=== PATIENT | female | born 1975 | race Caucasian/White ===

== ENCOUNTER 2023-10-08 22:07 | Inpatient (IN) | payer OTHER, SELFPAY ==
[2023-10-08 17:54] VITALS: BP 146/81
[2023-10-08 18:23] LABS: % Basophils 0.4 % (0-2); % Eosinophils 2.6 % (0-6); % Immature Granulocytes 0.3 % (0-0.5); % Lymphocytes 6.2 % (20.5-51.1); % Monocytes 5.7 % (1.7-9.3); % Neutrophils 84.8 % (42.2-75.2); Absolute Eosinophils 0.2 10^3/uL (0-0.7); Absolute Lymphocytes 0.5 10^3/uL (1.2-3.4); Absolute Monocytes 0.4 10^3/uL (0.1-0.6); Absolute Neutrophils 6.3 10^3/uL (1.4-6.5); Hematocrit 37.7 % (37.0-47.0); Hemoglobin 12.4 g/dL (12.0-16.0); Mean Corp Hgb Conc. 32.9 g/dL (33.0-37.0); Mean Corpuscular Volume 88.1 fL (81.0-99.0); Mean Platelet Volume 10.2 fL (7.4-10.4); Nucleated Red Blood Cells % 0 %; Platelet Count 251 10^3/uL (130-400); Red Blood Cell Count 4.28 10^6/uL (4.20-5.40); Red Cell Dist. Width 15.9 % (11.5-14.5); White Blood Cell Count 7.4 10^3/uL (4.8-10.8)
[2023-10-08 18:35] LABS: ALT (SGPT) 14 U/L (0-35); AST (SGOT) 22 U/L (14-36); Albumin 3.6 g/dl (3.5-5.0); Alkaline Phosphatase 220 U/L (38-126); Blood Urea Nitrogen 15 mg/dl (7-17); Calcium 8.8 mg/dl (8.4-10.2); Carbon Dioxide 22 mmol/L (22-30); Chloride 107 mmol/L (98-107); Glucose 118 mg/dl (70-99); Potassium 3.8 mmol/L (3.5-5.1); Sodium 137 mmol/L (135-145); Total Bilirubin 0.7 mg/dl (0.2-1.3); Total Protein 7.3 g/dl (6.3-8.2); eGFR > 60.00
--- NOTE | 2023-10-08 21:01 | ED.GENMED ---
History of Present Illness
General
Chief Complaint: Skin Problem
Source: patient
Exam Limitations: none
Time Seen by Provider: 10/08/23 20:49
Travel History
Have you had any contact with someone who has COVID-19?: No
Do you have any symptoms of coronavirus? Fever > 100 degrees, chills, cough, shortness of breath, sore throat, loss of taste or smell, muscle aches, or headache?: No
History of Present Illness
History of Present Illness:
See MDM
Past History
Past History
ED Past Medical History: CAD ([place]), CHF (Diastolic heart failure), COPD, HTN, Hypercholesterolemia, [place], Psychiatric (Depression, anxiety, Claustrophobic, ), Other (Morbid obesity, DVT, PE, cardiomyopathy, anemia, lymphedema, menometrorrhagia, Sleep
apnea, CPAP, Colitis, GI bleeding, Uterine fibroid, Green fild filter, Bronchiolitis, LBBB) and Other (Recurrent PE and DVT, fatty liver, uterine artery embolization Chronic lower extremity edema, Hemorrhiods, Iron Def anema, Cellulitis, )
ED Past Surgical History: , Gynecological (Tubal ligation, endometrial embolization, Uterine fibroids, ), Orthopedic (Laminectomy), Tonsilectomy and Other (IVC filter, right lumpectomy, )
Patient has exhibited threatening behavior?: No
PSI?: No
Social History
Tobacco: Smoker
Alcohol: Occasional
Drug: None
Personal: Single
Living: alone (Significant other)
Employment: Not employed ([employer])
Family History
Family History: Cancer (Mother with lung cancer at 51, father with lung cancer at 71 both )
Phy Exam
Physical Exam
Physical Exam:
See MDM
Course
Orders/Labs/Results
Orders:
Orders
10/08/23 18:12
CBC/With Diff [Complete Blood Count/With Diff] Urgent
CMP [Comprehensive Metabolic Panel] Urgent
10/08/23 20:58
Diphenhydramine [Benadryl] 25 mg IV NOW STA
10/08/23 20:59
CeFAZolin 2 grams IV Push NOW CeFAZolin 2 GRAM [Ancef] 2 grams in 10 ml IV NOW
Micafungin Sodium [Mycamine] 100 mg Dextrose 5%/Water 100 ml [D5w] 100 ml IV ONCE
Abnormal Lab Results
10/08/23
18:12
MCHC 32.9 L g/dL
(33.0-37.0)
RDW 15.9 H %
(11.5-14.5)
Absolute Lymphs (auto) 0.5 L 10^3/uL
(1.2-3.4)
Neutrophils % 84.8 H %
(42.2-75.2)
Lymphocytes % 6.2 L %
(20.5-51.1)
Glucose 118 H mg/dl
(70-99)
Alkaline Phosphatase 220 H U/L
(38-126)
10/08/23 18:12
10/08/23 18:12
Vital Signs
Initial and Last Documented VS:
Initial Vital Signs
Temp Pulse Resp BP Pulse Ox
98.1 F 100 22 146/81 97
10/08/23 17:54 10/08/23 17:54 10/08/23 17:54 10/08/23 17:54 10/08/23 17:54
Last Documented Vital Signs
Temp Pulse Resp BP Pulse Ox
98.1 F 100 22 146/81 97
10/08/23 17:54 10/08/23 17:54 10/08/23 17:54 10/08/23 17:54 10/08/23 17:54
MDM/Problems Addressed
Differential Diagnosis Includes:
HPI and MDM Narrative:
48-year-old female presenting to the emergency department with worsening skin irritation. Patient has been admitted in the past for severe tinea intertrigo. She has failed outpatient therapy in the past and has required admission for micafungin
and Ancef. Patient states the rash is returning and getting worse.
On exam, patient is significant skin irritation to her inguinal folds, her breast folds, her back skin folds and a significant rash to all extremities. Given her history, will restart micafungin and Ancef and admit
Physical exam
General: Well appearing and non-toxic
HEENT: protecting airway
Neck: appears supple
CV: No evidence of cyanosis
Resp: No accessory muscle use
Abd: Non-distended
Extremities: No deformities
Neuro: alert
Psych: Normal affect
Skin: Erythema and oozing to inguinal skin folds, breast folds and back fold. pustular rash to both arms
Problems Addressed including Acute and Chronic Conditions affecting care:
1. Tinea intertrigo
Acuity: acute
Prognosis: unstable
Details: patient restarted on micafungin and Ancef
Updates
Differential Diagnosis (but not limited to): Tinea, intertrigo, cellulitis
Drug therapy (if applicable): OTC meds, please see d/c instruction regarding Rx drugs
Amount and/or Complexity of Data Reviewed
Clinical info obtained from: Patient
External data reviewed: Prior admissions requiring micafungin and Ancef
Labs I independently reviewed (but not limited to): [White blood cell count normal
Radiology: N/A
Pulse Ox: not hypoxic
EKG independently reviewed: N/A
Soup Person: N/A
Critical Care: N/A
Risk of Complication:
Social Determinants of health: Good social support
Discussed with other providers: Hospitalist
Escalation of Care includes Admit/Obs: Given the worsening rash, will start IV micafungin and Ancef and admit
Occasional wrong word or 'sound a like' substitutions may have occurred due to the inherent limitations of voice recognition software. Read the chart carefully and recognize, using context, where substitutions have occurred.
*Critical Care Note
Total Time (30-74mins, 75-104mins- exclusive of procedures): Not Applicable
ED Attending Note
-
Portions of this chart may have been created with voice recognition software.� Occasional wrong word or��sound alike� substitutions may have occurred due to the inherent limitations of voice recognition software.
Discharge Plan
Departure
Patient Disposition: Admit
Date of Disposition: 10/08/23
Time of Disposition: 21:01
Admit to: Med/Surg
Presentation/result/management discussed w/ accepting MD/DO: Hospitalist
Discharge Problem:
Intertrigo
Prescriptions:
No Action
loratadine 10 MG tablet
10 mg PO DAILY
ferrous sulfate [FeroSul] 325 MG tablet
325 mg PO Q48H
fluoxetine 20 MG capsule
20 mg PO DAILY
albuterol sulfate 1 PUFF HFA aerosol inhaler
2 puff inhalation R Q4HPRN PRN (Reason: sob/wheezing)
diltiazem HCl 180 MG capsule,extended release 24hr
180 mg PO DAILY Qty: 30 0RF
atorvastatin 40 mg tablet
40 mg PO DAILY
guaifenesin [Mucinex] 600 mg Tablet Extended Release 12hr
600 mg PO Q12H PRN (Reason: chest congestion)
pantoprazole 20 mg tablet,delayed release (DR/EC)
20 mg PO DAILY PRN (Reason: gi issues)
torsemide 20 mg Tablet
20 mg PO DAILY PRN (Reason: weight gain)
spironolactone 25 mg Tablet
25 mg PO DAILY
Critic-Aid Clear AF(miconazol) 2 % Ointment
1 applic topical BIDPRN PRN (Reason: open areas in affected skin folds) Qty: 684 0RF
bupropion HCl 300 mg Tablet Extended Release 24 Hr
300 mg PO DAILY
melatonin 5 mg Tablet
5 - 10 mg PO HS
clotrimazole [Athlete's Foot (clotrimazole)] 1 % Cream
1 applic topical BID Qty: 45 2RF
Rx Instructions:
apply to skin folds/fungal rash BID x 2 weeks
white petrolatum [Hydrophor] 42 % Ointment
1 applic topical DAILY Qty: 454 0RF
Rx Instructions:
to dry legs
cephalexin 500 mg capsule
500 mg PO QID Qty: 20 0RF
--- NOTE | 2023-10-08 21:10 | HPS.HSE ---
Addendum entered and electronically signed by Qasim Perera MD 10/08/23 22:00:
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
anxiety/depression, anemia, sleep apnea, fatty liver, chronic anemia presenting for third admission for rash.
Patient recently discharged on 09/02 after being admitted for severe intertrigo with suspected superimposed bacterial cellulitis.� She was treated with micafungin and Ancef and discharged to Keflex and clotrimazole as per ID.� She also had a
generalized body rash that was attributed to fluconazole.
Patient reports that symptoms worsened after she finished treatment and insurance would not approve further prolonged treatment.
On examination she has a erythematous draining rash which is consistent with fungal intertrigo in the creases including groin, abdominal folds and under the breasts.� She has also developed itchiness and erythema more acutely in her bilateral hands
over the past 2 days which has progressed up the extremities as well as involving the chest and lower extremities which appears as a pustular rash.� Suspecting that this could be due to contact dermatitis/pustular eczema/psoriasis.
Will start Ancef/micafungin as was done previously.� ID consulted.� May require dermatology consult.�
Original Note:
Family Physician
-
Family Physician: Maegan Sanchez DO
Chief Complaint
-
generalized rash
History of Present Illness
48 year old with PMH for CAD, CHF, [place], Depression, anxiety, DVT, PE, anemia, lymphedema, sleep apnea, GI bleed presented to us with generalized rash all over body for past few days. stated the pustule rash started on her hand spreaded to b/l arms
and body. patient had fungal rash underneath her breast, abdominal pain folds and groin area which also got worse. patient was discharged on oral abx and antifungal. she stated, was doing much better on abx but rash comes back, when she is not on
abx. patient stated its painful and itchy. her PCP prescribed abx and cream. which also helped but rash appeared within days off abx. the cream only last her two week and insurance won't fill her cream every two weeks. denied fever, chills, WATERS,
dizzy or syncopal episode. denied chest pain, sob. denied abdominal pain, n, ,v,d. denied dysuria or hematuria.
patient received a dose of Ancef and micafungin. admitting for further management.
Medical History
Past Medical History
Past Medical History: Reports Other
Additional Past Medical History:
hypertension, coronary artery disease, diastolic heart failure, bilateral pulmonary embolisms, prior DVT status post IVC filter, COPD, obesity, hypercholesterolemia, anxiety/depression, anemia, sleep apnea, fatty liver, chronic edema, hemorrhoids,
Past Surgical History: Reports Other
Additional Past Surgical History:
, Tubal ligation, endometrial embolization, Uterine fibroids,Laminectomy,Tonsillectomy VC filter, right lumpectomy
Social History
Tobacco: Smoker
Alcohol: Occasional
Drug: None
Family History
Family History: Not pertinent
Allergies / Home Medications
Allergies reflects when Allergies were last updated in [facility].
Home Medications with original date entered in [facility]
Allergy/Medication List:
Allergies
Allergy/AdvReac Type Severity Reaction Status Date / Time
amoxicillin Allergy Rash on Verified 10/08/23 17:58
hands
naproxen Allergy heart Verified 10/08/23 17:58
palpitaitons
pollen extracts Allergy SOB;congest Verified 10/08/23 17:58
ion
Home Medications
ferrous sulfate 325 mg (65 mg iron) tablet (FeroSul) 325 mg PO Q48H Supplement/anemia 02/10/15
loratadine 10 mg tablet 10 mg PO DAILY Allergies 02/10/15
albuterol sulfate 90 mcg/actuation aerosol inhaler 2 puff inhalation R Q4HPRN PRN sob/wheezing 10/01/17
diltiazem HCl 180 mg capsule,extended release 24 hr 180 mg PO DAILY Heart disease/condition #30 caps 09/28/20
guaifenesin 600 mg tablet, extended release 12 hr (Mucinex) 600 mg PO Q12H PRN chest congestion 11/06/22
pantoprazole 20 mg tablet,delayed release 20 mg PO DAILY PRN gi issues 08/06/23
spironolactone 25 mg tablet 25 mg PO DAILY 08/07/23
melatonin 5 mg tablet 5 - 10 mg PO HS 08/30/23
acetaminophen 325 mg tablet (Tylenol) 650 mg PO Q4H PRN MILD PAIN 10/08/23
bupropion HCl 150 mg tablet,12 hr sustained-release (Wellbutrin SR) 300 mg PO DAILY 10/08/23
rosuvastatin 20 mg tablet (Crestor) 20 mg PO DAILY 10/08/23
Review of Systems
-
Constitutional: Reports No Symptoms
EENT: Reports No Symptoms
Respiratory: Reports No Symptoms
Cardiac: Reports No Symptoms
Abdomen/GI: Reports No Symptoms
: Reports No Symptoms
Musculoskeletal: Reports No Symptoms
Skin: Reports Rash (generalized body)
Neurological: Reports No Symptoms
Endocrine: Reports No Symptoms
Hematologic/Lymphatic: Reports No Symptoms
Psych: Reports No Symptoms
Physical Exam
Vital Signs
Vital Signs
Temp Pulse Resp BP Pulse Ox
98.1 F 100 22 146/81 97
10/08/23 17:54 10/08/23 17:54 10/08/23 17:54 10/08/23 17:54 10/08/23 17:54
Physical Exam
General: Well Developed, Well Nourished and No Apparent Distress
HEENT: NormoCephalic, Moist mucous membranes and Atraumatic
Respiratory: Clear
Cardiac: S1/S2 and Regular Rhythm; No Murmur or Rub
GI: Soft, Non Tender, Non Distended and Normal Bowel Sounds; No Organomegaly
Rectal: Deferred by Provider
Musculoskeletal: No Clubbing, No Cyanosis and No Edema
Skin: Rash
Neuro: AO x 3 and Nonfocal/grossly intact
Psych: Calm
Laboratory Results
-
10/08/23 18:12
10/08/23 18:12
Laboratory Results
Total Bilirubin 0.7 mg/dl (0.2-1.3) 10/08/23 18:12
AST 22 U/L (14-36) 10/08/23 18:12
ALT 14 U/L (0-35) 10/08/23 18:12
Alkaline Phosphatase 220 U/L (38-126) H 10/08/23 18:12
Data Reviewed
-
Lab Data: Labs Reviewed by me
Impression/Plan
-
#severe tinea intertrigo
-micafungin and Ancef continued
-ID consulted
#rash likely contact dermatitis/pustule psoriasis
-may need dermatology consult
#Chronic HFpEF
Essential HTN
- continue Cardizem
-spironolactone continued
#hx of PE/DVT s/p IVF filter
#COPD, chronic
- continue inhalers
#Morbid Obesity, chronic, complicating all aspects of her care
- encourage weight loss
#Hypercholesterolemia, chronic
- continue statin
#Anxiety/depression
- continue bupropion
#Anemia, chronic, likely from chronic disease
- continue iron supplement
#History of fatty liver, chronic
#GERD, chronic
- continue Protonix
#Active smoker
- smokes 6-8 cigarettes a day
- encourage smoking cessation
- denied nicotine patch at this time
#DVT ppx: SC Heparin
#Code: Full
[2023-10-08] MEDS: BENADRYL 25 MG IV (21:31)
[2023-10-08 21:35] VITALS: BP 136/66
[2023-10-08] MEDS: MYCAMINE 105 MG IV (22:23)
[2023-10-08] MEDS: ANCEF 10 IV (22:23)
[2023-10-08] MEDS: MELATONIN 10 MG PO (23:52)
[2023-10-09] VITALS (8 sets, daily range): BP systolic 124–146; BP diastolic 54–72
[2023-10-09] MEDS: DILAUDID 0.25 MG IV ×2 (00:51→10:10)
[2023-10-09] MEDS: BENADRYL 25 MG PO (00:52)
[2023-10-09] MEDS: ANCEF 10 IV (05:41)
[2023-10-09 06:58] LABS: Hemoglobin 11.3 g/dL (12.0-16.0); Mean Corp Hgb Conc. 32.3 g/dL (33.0-37.0); Mean Corpuscular Hgb 28.9 pg (27.0-31.0); Mean Corpuscular Volume 89.5 fL (81.0-99.0); Mean Platelet Volume 10.4 fL (7.4-10.4); Platelet Count 248 10^3/uL (130-400); Red Blood Cell Count 3.91 10^6/uL (4.20-5.40); Red Cell Dist. Width 15.7 % (11.5-14.5); White Blood Cell Count 5.3 10^3/uL (4.8-10.8)
[2023-10-09 07:25] LABS: Blood Urea Nitrogen 13 mg/dl (7-17); Calcium 8.7 mg/dl (8.4-10.2); Carbon Dioxide 23 mmol/L (22-30); Chloride 102 mmol/L (98-107); Glucose 85 mg/dl (70-99); Sodium 135 mmol/L (135-145); eGFR > 60.00
--- NOTE | 2023-10-09 08:45 | CON.ID ---
Consultation
-
Date/Time Consultation Requested: 10/08/2023 22:40
Date/Time Consultation Performed: 10/09/2023 08:45
Requesting Provider: Mar Morrissey
Performing Provider: Dr. Viveros
Reason for Consultation: Recurrent Intertrigio
Chief Complaint / Past History
History of Present Illness
Adin Escobar is a 48-year-old female being evaluated at the request of Mar Morrissey in regards to body rash and intertrigo. History is obtained from chart review, along with patient interview.
The patient is known to the Infectious Diseases service, having been seen in consultation on 08/31/2023. At that point in time she had developed an inguinal rash on approximately 08/06, and in the interim she had been using 'creams and powders' to the
area but were not helping. At that time she was placed on Diflucan, but despite antifungal therapy the inguinal rash was not improving. Ultimately, she was admitted, placed on micafungin and cefazolin, and discharged on 09/02/2023, to continue with
an additional 5 days of therapy. She notes that she finished her antibiotics on 09/07/2023, but after several days she felt that the inguinal rash was getting worse and she called her PCP, who prescribed an additional 10 days of cephalexin. She
finished this prescription on about 09/21/2023. She seemed to be improved following that, but notes that 3 days ago she developed a red and itchy rash on her hands, with subsequent development of red bumps on her arms and other extremities. She
also notes that the groin issue seems to have returned.
.
She denies any fevers or chills. She notes discomfort in her hands, and her groin. She notes no oral discomfort, though.
Past History
Additional Past Medical History:
CAD; Hx [place]
CHF
COPD
HTN
Dyslipidemia
Anxiety/depression
DVT/PE
Morbid obesity
Lymphedema
ILEANA
Additional Past Surgical History:
Tubal ablation
Endometrial embolization for uterine fibroids laminectomy
IVC filter placement
Right lumpectomy
Allergy History:
amoxicillin Allergy (Verified 10/08/23 17:58)
Rash on hands
naproxen Allergy (Verified 10/08/23 17:58)
heart palpitaitons
pollen extracts Allergy (Verified 10/08/23 17:58)
SOB;congestion
Medications Reviewed: Yes
Current Antibiotics:
Cefazolin
Micafungin
Social History
Tobacco: Smoker
Alcohol: Occasional
Drug: None
Personal: Single
Family History
Family History: Not Pertinent
Review of Systems
Vital Signs
Temp Pulse Resp BP Pulse Ox
97.5 F 66 20 124/66 94
10/09/23 07:00 10/09/23 07:00 10/09/23 07:00 10/09/23 05:42 10/09/23 07:00
Physical Exam
Physical Exam
Constitutional: No Acute Distress, Comfortable and Non-toxic
Head: Normocephalic
Eyes: Pupils Equal, Pupils Round, No Conjunctival Hemorrhage and Sclera Anicteric
Oral: No Thrush
Cardiovascular: S1/S2; Negative S3/S4 or Murmur
Pulmonary: Non Labored; Negative Wheezes or Rales
Gastrointestinal: Soft and Non Tender
Genito-Urinary: Negative Rain
Extremities: Edema and Erythema (Noted on bilateral hands)
Skin: Rash (Macular papular rash with occasional small pustules noted on the extremities bilaterally. Inguinal rash also noted. No overt weeping, though.)
Neurological: Awake and Alert
Psychological: Calm
.
Lab / Diagnostic Study Results
10/09/23 06:09
10/09/23 06:09
Abs Immat Gran (auto) 0.0 10^3/uL (0-0.05) 03/06/24 18:12
Absolute Neuts (auto) 6.3 10^3/uL (1.4-6.5) 10/08/23 18:12
Absolute Lymphs (auto) 0.5 10^3/uL (1.2-3.4) L 10/08/23 18:12
Absolute Monos (auto) 0.4 10^3/uL (0.1-0.6) 10/08/23 18:12
Absolute Basos (auto) 0.0 10^3/uL (0-0.2) 10/08/23 18:12
Immature Gran % 0.3 % (0-0.5) 10/08/23 18:12
Neutrophils % 84.8 % (42.2-75.2) H 10/08/23 18:12
Lymphocytes % 6.2 % (20.5-51.1) L 10/08/23 18:12
Monocytes % 5.7 % (1.7-9.3) 10/08/23 18:12
Eosinophils % 2.6 % (0-6) 10/08/23 18:12
Basophils % 0.4 % (0-2) 10/08/23 18:12
Assessment / Plan
Skin rash
Suspect drug reaction; ?late reaction to keflex vs other medication
Intertrigo
CAD; Hx [place]
CHF
COPD
HTN
Dyslipidemia
Anxiety/depression
DVT/PE
Morbid obesity
Lymphedema
ILEANA
Recommendations:
Case discussed with Hospitalist.
Not clear as to whether this is a drug reaction or contact dermatitis, but little evidence at present for cellulitis.
No objection to discontinuing further antibiotics (cefazolin)
Would discontinue further antifungals as it will not likely help the cutaneous Belen infection at this point as there is very little weeping.
Can continue with topical clotrimazole. Topical terbinafine.
Would recommend follow-up with Dermatology for close monitoring.
Care Review
Plan reviewed with: Physician (Hospitalist)
[2023-10-09] MEDS: ALDACTONE 25 MG PO (10:04)
[2023-10-09] MEDS: CLARITIN 10 MG PO (10:04)
[2023-10-09] MEDS: CRESTOR 20 MG PO (10:04)
[2023-10-09] MEDS: CARDIZEM CD 180 MG PO (10:04)
[2023-10-09] MEDS: WELLBUTRIN XL (24 hour extended release) 300 MG PO (10:05)
--- NOTE | 2023-10-09 11:17 | W.DS.TRANS ---
DC Summary - Stage Rigger
-
Discharge Instructions:
Discharge Diagnosis/Procedures Drug reaction
Diet 2 Gram Sodium
Instructions:
Stand-Alone Forms:
Changes to Home Medications: Yes
Discharge Medications:
DC Medications w/original date entered in [employer]
ferrous sulfate 325 mg (65 mg iron) tablet (FeroSul) 325 mg PO Q48H Supplement/anemia 02/10/15
loratadine 10 mg tablet 10 mg PO DAILY Allergies 02/10/15
albuterol sulfate 90 mcg/actuation aerosol inhaler 2 puff inhalation R Q4HPRN PRN sob/wheezing 10/01/17
diltiazem HCl 180 mg capsule,extended release 24 hr 180 mg PO DAILY Heart disease/condition #30 caps 09/28/20
guaifenesin 600 mg tablet, extended release 12 hr (Mucinex) 600 mg PO Q12H PRN chest congestion 11/06/22
pantoprazole 20 mg tablet,delayed release 20 mg PO DAILY PRN gi issues 08/06/23
spironolactone 25 mg tablet 25 mg PO DAILY 08/07/23
melatonin 5 mg tablet 10 mg PO HS 08/30/23
acetaminophen 325 mg tablet (Tylenol) 650 mg PO Q4H PRN MILD PAIN 10/08/23
bupropion HCl 150 mg tablet,12 hr sustained-release (Wellbutrin SR) 300 mg PO DAILY 10/08/23
rosuvastatin 20 mg tablet (Crestor) 20 mg PO DAILY 10/08/23
cetirizine 10 mg tablet 10 mg PO DAILY #30 tabs 10/09/23
prednisone 10 mg tablet 10 mg PO DIRECTED #42 tabs 10/09/23
triamcinolone acetonide 0.1 % topical cream 1 applic topical TID #80 grams 10/09/23
Home Medication Changes
prednisone taper
Zyrtec
Topical steroid
Pending Results: No
--- NOTE | 2023-10-09 12:04 | W.DS.TRANS ---
DC Summary - Cherry Dipper
-
Discharge Instructions:
Discharge Diagnosis/Procedures Drug reaction
Diet 2 Gram Sodium
Instructions:
Stand-Alone Forms:
Changes to Home Medications: Yes
Discharge Medications:
DC Medications w/original date entered in [facility]
ferrous sulfate 325 mg (65 mg iron) tablet (FeroSul) 325 mg PO Q48H Supplement/anemia 02/10/15
albuterol sulfate 90 mcg/actuation aerosol inhaler 2 puff inhalation R Q4HPRN PRN sob/wheezing 10/01/17
diltiazem HCl 180 mg capsule,extended release 24 hr 180 mg PO DAILY Heart disease/condition #30 caps 09/28/20
guaifenesin 600 mg tablet, extended release 12 hr (Mucinex) 600 mg PO Q12H PRN chest congestion 11/06/22
pantoprazole 20 mg tablet,delayed release 20 mg PO DAILY PRN gi issues 08/06/23
spironolactone 25 mg tablet 25 mg PO DAILY 08/07/23
melatonin 5 mg tablet 10 mg PO HS 08/30/23
acetaminophen 325 mg tablet (Tylenol) 650 mg PO Q4H PRN MILD PAIN 10/08/23
bupropion HCl 150 mg tablet,12 hr sustained-release (Wellbutrin SR) 300 mg PO DAILY 10/08/23
rosuvastatin 20 mg tablet (Crestor) 20 mg PO DAILY 10/08/23
cetirizine 10 mg tablet 10 mg PO DAILY #30 tabs 10/09/23
prednisone 10 mg tablet 10 mg PO DIRECTED #42 tabs 10/09/23
triamcinolone acetonide 0.1 % topical cream 1 applic topical TID #80 grams 10/09/23
Home Medication Changes
Oral and topical steroid added
Pending Results: No
[2023-10-09] MEDS: DELTASONE 60 MG PO (14:49)
== END 2023-10-09 15:25 | disposition home or self-care (01) | DRG 607 ==
LOC: ED 22:07
PROVIDERS: Emergency Medicine; Registered Nurse; ADMITTING PHYSICIAN Hospitalist; ATTENDING PHYSICIAN Internal Medicine; CONSULT PHYSICIAN Internal Medicine Infectious Disease; EMERGENCY PHYSICIAN Student in an Organized Health Care Education/Training Program; FAMILY PHYSICIAN Family Medicine
DX: L27.1 Localized skin eruption due to drugs and medicaments taken internally (principal); Z68.43 Body mass index [BMI] 50.0-59.9, adult; I50.32 Chronic diastolic (congestive) heart failure; L30.4 Erythema intertrigo; E66.01 Morbid (severe) obesity due to excess calories; K76.0 Fatty (change of) liver, not elsewhere classified; K21.9 Gastro-esophageal reflux disease without esophagitis; F17.210 Nicotine dependence, cigarettes, uncomplicated; I11.0 Hypertensive heart disease with heart failure; T36.1X5A Adverse effect of cephalosporins and other beta-lactam antibiotics, initial encounter; Z86.711 Personal history of pulmonary embolism
CPT/HCPCS: 80048; 80053; 85025; 85027; 96361; 96374; 96375; 99284

== ENCOUNTER 2024-11-26 12:43 | Emergency (ER) | payer OTHER, SELFPAY ==
[2024-11-26 12:45] VITALS: BP 134/69
--- NOTE | 2024-11-26 14:06 | ED.GENMED ---
History of Present Illness
General
Chief Complaint: Skin Problem
Source: patient
Exam Limitations: none
Time Seen by Provider: 11/26/24 13:49
Nursing documentation reviewed up to this point in time: agreed with
History of Present Illness
History of Present Illness:
49 y/o F with h/o alcohol abuse, cardiomyopathy/chf, CT, not anticoagulated
here with L breast pain/redness x 3 days
pt says she had lumpectomy R breast which was benign in 2011 and she never had closure of the skin so the area always drains
about 3-4days ago she started having firmness, swellling, tenderness, redness and no drainage;
she has not ahd systemic symptoms
andree tto [facility] yesterday where she had labs, and was ordered US but waited 5 hours and left before obtaining
she got Rx for bactrim which she didn't start yet
pain is moderate
Past History
Past History
ED Past Medical History: CAD (CT), CHF (Diastolic heart failure), COPD, HTN, Hypercholesterolemia, CT, Psychiatric (Depression, anxiety, Claustrophobic, ), Other (Morbid obesity, DVT, PE, cardiomyopathy, anemia, lymphedema, menometrorrhagia, Sleep
apnea, CPAP, Colitis, GI bleeding, Uterine fibroid, Green fild filter, Bronchiolitis, LBBB) and Other (Recurrent PE and DVT, fatty liver, uterine artery embolization Chronic lower extremity edema, Hemorrhiods, Iron Def anema, Cellulitis, )
ED Past Surgical History: , Gynecological (Tubal ligation, endometrial embolization, Uterine fibroids, ), Orthopedic (Laminectomy), Tonsilectomy and Other (IVC filter, right lumpectomy, )
Patient has exhibited threatening behavior?: No
PSI?: No
Social History
Tobacco: Smoker
Alcohol: Occasional
Drug: None
Personal: Single
Living: alone (Significant other)
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
Family History
Family History: Cancer (Mother with lung cancer at 51, father with lung cancer at 71 both )
Review of Systems
Review of Systems
Allergies reviewed?: Yes
All Other Systems: Not applicable
Phy Exam
Physical Exam
Physical Exam:
GENERAL: Alert , in no apparent distress
EYE: pupils equal and reactive
NECK: Supple
ENT: o/p clr, mmm.
CARDIAC: Regular rate and rhythm .
breast: left involving medial areaola to nipple, tender firm indurated area measuring about 3 cm no fluctuance, no drainage, mild erythema overtop
LUNGS: Clear breath sounds bilaterally, no acute respiratory distress, no wheezes/rales/rhonchi
ABDOMEN: Soft, without focal tenderness, no r/g, no cvat, normal bowel sounds
NEUROLOGICAL: Alert and oriented, no focal neuro deficits
skin: multiple erythematous dry patches, ? psoriasis
PSYCH: Normal and appropriate interaction.
Course
Orders/Labs/Results
Orders:
Orders
11/26/24 14:37
US Breast Left Ltd [facility] Urgent
Reason for Exam: left breast abscess
11/26/24 15:22
Complete Blood Count/With Diff Urgent
Comprehensive Metabolic Panel Urgent
Manual Differential Urgent
11/26/24 15:38
Oxycodone/Acetaminophen [Percocet 5/325] 1 tablet PO NOW STA
11/26/24 15:41
Consult Interventional Radiology [IRAD CONSULT] Urgent
Consulting Provider: Augusto Emery
Was physician already notified: Yes
Reason for Consult/Procedure: breast abscess
Acknowledgement that appropriate orders are entered: Yes
11/26/24 15:43
Ondansetron Orally Disint [Zofran Odt (Orally Disintegrating)] 4 mg PO NOW STA
11/26/24 16:57
Wound Culture [Wound/Abscess/Other Culture] Urgent
LIZBETH Source: Breast
Specimen Description: Left
Date Specimen was Collected: 11/26/24
Time Specimen was Collected: 16:34
Abnormal Lab Results
11/26/24
15:22
RDW 14.8 H %
(11.5-14.5)
Monocytes (Manual) 12 H %
(2-9)
Chloride 110 H mmol/L
(98-107)
Glucose 102 H mg/dl
(70-99)
11/26/24 15:22
11/26/24 15:22
Vital Signs
Initial and Last Documented VS:
Initial Vital Signs
Temp Pulse Resp BP Pulse Ox
36.9 C 89 18 134/69 95
11/26/24 12:45 11/26/24 12:45 11/26/24 12:45 11/26/24 12:45 11/26/24 12:45
Last Documented Vital Signs
Temp Pulse Resp BP Pulse Ox
36.7 C 85 16 126/61 99
11/26/24 16:05 11/26/24 16:38 11/26/24 16:38 11/26/24 16:38 11/26/24 16:38
MDM/Problems Addressed
Differential Diagnosis Includes:
breast abscess, infected cyst, malignancy
MDM/Problems Addressed:
49 y/o F with h/o breast lumpectomy but in the R breast in 2011 here
says she also had same from L breast, but i do not see that documentation
says she chronically drains from her L breast if she expresses from a small area
but that it stopped draining a few days ago now with swelling, induration, redness;
no fever
has a tender indurated abscess involving aerola
d/w [facility] ttending and breast surgeon dr. mckenna
recommended US and if + then IR drainage
pt has what looks like marcio cyst in the breast with overlying erythema on the US
d/w ir dr. winchester who was able to drain it
left open, not packed
warm compresses
pt has abx from [place] yesterday
f/u breast surgeyr
*Critical Care Note
Total Time (30-74mins, 75-104mins- exclusive of procedures): Not Applicable
ED Attending Note
-
Portions of this chart may have been created with voice recognition software.� Occasional wrong word or��sound alike� substitutions may have occurred due to the inherent limitations of voice recognition software.
Discharge Plan
Departure
Patient Disposition: Home (Routine Discharge)
Date of Disposition: 11/26/24
Time of Disposition: 17:15
Patient with high blood pressure during this ER visit?: No
Condition: Fair
Covid-19: Not Applicable
Discharge Problem:
Infected sebaceous cyst
Instructions: Skin abscess drainage - Discharge instructions
Prescriptions:
No Action
ferrous sulfate [FeroSul] 325 MG tablet
325 mg PO Q48H
albuterol sulfate 1 PUFF HFA aerosol inhaler
2 puff inhalation R Q4HPRN PRN (Reason: sob/wheezing)
diltiazem HCl 180 MG capsule,extended release 24hr
180 mg PO DAILY Qty: 30 0RF
Patient Comments:
10/08/23- NO PHARMACY RECORD OR ECW RECORD OF THIS DRUG
guaifenesin [Mucinex] 600 mg Tablet Extended Release 12hr
600 mg PO Q12H PRN (Reason: chest congestion)
pantoprazole 20 mg tablet,delayed release (DR/EC)
20 mg PO DAILY PRN (Reason: gi issues)
spironolactone 25 mg Tablet
25 mg PO DAILY
Patient Comments:
10/08/23- NO PHARMACY RECORD OR ECW RECORD OF THIS DRUG
melatonin 5 mg Tablet
10 mg PO HS
bupropion HCl [Wellbutrin SR] 150 mg Tablet Sustained-Release 12 Hr
300 mg PO DAILY
acetaminophen [Tylenol] 325 mg Tablet
650 mg PO Q4H PRN (Reason: MILD PAIN)
rosuvastatin [Crestor] 20 mg Tablet
20 mg PO DAILY
cetirizine 10 mg Tablet
10 mg PO DAILY Qty: 30 0RF
prednisone 10 mg tablet
10 mg PO DIRECTED Qty: 42 0RF
Rx Instructions:
60mg for 2 days
50mg for 2 days
40mg for 2 days
30mg for 2 days
20mg for 2 days
10mg for 2 days
triamcinolone acetonide 0.1 % cream
1 applic topical TID Qty: 80 2RF
Referrals:
Loreto Mckenna MD [Active] - Follow up in 2-3 days
Maegan Sanchez DO [Family Provider] - Follow up in 2-3 days
Activity Restrictions/Additional Instructions:
YOU NEED TO TAKE YOUR ANTIBIOTICS
WARM COMPRESSES OFF AND ON
CALL DR. MCKENNA'S OFFICE FOR APPOINTMENT ON FRIDAY
RETURN FOR ANY CONCERNS LIKE FEVER, WORSE REDNESS, WORSE SWELLING, WORSE PAIN OR ANY CONCERNS
Interventions
Interventions:
*Risk Screen - Suicide Last Done: 11/26/24 12:45
*General Assessment Last Done: 11/26/24 12:45
*Neglect/Abuse Screening Last Done: 11/26/24 12:45
*ED COVID-19 Vaccine History Last Done: 11/26/24 12:45
*Nursing Disposition Last Done: 11/26/24 17:49
ED-Skin Assessment Last Done: 11/26/24 15:38
Discharge Date and Time
Discharge Date/Time: 11/26/24 17:50
Print Language: ESTONIAN
[2024-11-26] MEDS: PERCOCET 5/325 1 TABLET PO (15:42)
[2024-11-26] MEDS: ZOFRAN ODT (ORALLY DISINTEGRATING) 4 MG PO (15:46)
[2024-11-26 15:51] LABS: Hematocrit 43.3 % (37.0-47.0); Hemoglobin 14.5 g/dL (12.0-16.0); Mean Corp Hgb Conc. 33.5 g/dL (33.0-37.0); Mean Corpuscular Hgb 30.3 pg (27.0-31.0); Mean Corpuscular Volume 90.4 fL (81.0-99.0); Mean Platelet Volume 10.4 fL (7.4-10.4); Platelet Count 233 10^3/uL (130-400); Red Blood Cell Count 4.79 10^6/uL (4.20-5.40); Red Cell Dist. Width 14.8 % (11.5-14.5); White Blood Cell Count 5.2 10^3/uL (4.8-10.8)
[2024-11-26 15:59] LABS: ALT (SGPT) 15 U/L (0-35); AST (SGOT) 25 U/L (14-36); Albumin 3.6 g/dl (3.5-5.0); Alkaline Phosphatase 112 U/L (38-126); Blood Urea Nitrogen 16 mg/dl (7-17); Carbon Dioxide 24 mmol/L (22-30); Chloride 110 mmol/L (98-107); Glucose 102 mg/dl (70-99); Potassium 4.4 mmol/L (3.5-5.1); Sodium 143 mmol/L (135-145); Total Bilirubin 0.6 mg/dl (0.2-1.3); Total Protein 7.1 g/dl (6.3-8.2); eGFR > 60.00
[2024-11-26 16:05] VITALS: BP 143/78; BP_SYST 75
[2024-11-26 16:17] LABS: Absolute Neutrophils -Man Diff 2.7 10^3/uL (1.4-6.5); Atypical Lymphocytes 2 %; Band Neutrophils 0 % (0-3); Eosinophils 6 % (0-6); Lymphocytes 27 % (20-51); Monocytes 12 % (2-9); Platelets Checked Yes; Segmented Neutrophils 53 % (42-75)
[2024-11-26 16:20] LABS: Normal RBC Morphology Yes; Total Cells Counted 100
[2024-11-26 16:38] VITALS: BP 126/61; BP_SYST 85
== END 2024-11-26 17:50 | disposition home or self-care (01) ==
LOC: EMR 12:43
PROVIDERS: Physician Assistant; CONSULT PHYSICIAN Radiology Vascular & Interventional Radiology; EMERGENCY PHYSICIAN Student in an Organized Health Care Education/Training Program; FAMILY PHYSICIAN Family Medicine
DX: L08.9 Local infection of the skin and subcutaneous tissue, unspecified (principal); L72.3 Sebaceous cyst; N61.1 Abscess of the breast and nipple; F10.10 Alcohol abuse, uncomplicated; I42.9 Cardiomyopathy, unspecified; I25.2 Old myocardial infarction; I11.0 Hypertensive heart disease with heart failure; I50.32 Chronic diastolic (congestive) heart failure; E66.01 Morbid (severe) obesity due to excess calories; E78.00 Pure hypercholesterolemia, unspecified; F41.8 Other specified anxiety disorders; G47.30 Sleep apnea, unspecified; I25.10 Atherosclerotic heart disease of native coronary artery without angina pectoris; J44.9 Chronic obstructive pulmonary disease, unspecified; F17.200 Nicotine dependence, unspecified, uncomplicated; Z80.1 Family history of malignant neoplasm of trachea, bronchus and lung; Z86.718 Personal history of other venous thrombosis and embolism; Z98.51 Tubal ligation status
CPT/HCPCS: 99284; 10160; 76642; 76942; 80053; 85025; 87070; 87205

== ENCOUNTER → 2024-12-06 15:32 | Outpatient (REF) | payer OTHER, SELFPAY | LOC: RCS 15:32 | PROVIDERS: ATTENDING PHYSICIAN Nuclear Medicine Nuclear Cardiology; FAMILY PHYSICIAN Family Medicine | DX: I50.32 Chronic diastolic (congestive) heart failure (principal); I44.7 Left bundle-branch block, unspecified; I27.20 Pulmonary hypertension, unspecified | CPT/HCPCS: 93306 ==

== ENCOUNTER 2024-12-11 17:58 | Inpatient (IN) | payer OTHER, SELFPAY ==
[2024-12-11 11:50] VITALS: BP 154/82
--- NOTE | 2024-12-11 12:54 | ED.GENMED ---
History of Present Illness
<JEFF Moore - Last Filed: 12/11/24 15:35>
General
Chief Complaint: Skin Problem
Source: patient
Exam Limitations: none
Time Seen by Provider: 12/11/24 12:20
Nursing documentation reviewed up to this point in time: agreed with
History of Present Illness
History of Present Illness:
49-year-old female with past medical history of alcohol abuse cardiomyopathy, CHF [place] IVC filter presents to the ER for evaluation of left breast abscess. Patient was seen here 11/26 for left breast abscess and had this drained by interventional
radiology. She reports about 4 days after she had a drained she feels that the infection started to build up again. She saw her family doctor on 2 days ago and was placed on doxycycline. She reports she has increasing redness pain and
swelling to the area. She denies any fevers.
She has an appointment with Dr. Mckenna on Friday
Past History
<JEFF Moore - Last Filed: 12/11/24 15:35>
Past History
ED Past Medical History: CAD ([place]), CHF (Diastolic heart failure), COPD, HTN, Hypercholesterolemia, [place], Psychiatric (Depression, anxiety, Claustrophobic, ), Other (Morbid obesity, DVT, PE, cardiomyopathy, anemia, lymphedema, menometrorrhagia, Sleep
apnea, CPAP, Colitis, GI bleeding, Uterine fibroid, Green fild filter, Bronchiolitis, LBBB) and Other (Recurrent PE and DVT, fatty liver, uterine artery embolization Chronic lower extremity edema, Hemorrhiods, Iron Def anema, Cellulitis, )
ED Past Surgical History: , Gynecological (Tubal ligation, endometrial embolization, Uterine fibroids, ), Orthopedic (Laminectomy), Tonsilectomy and Other (IVC filter, right lumpectomy, )
Patient has exhibited threatening behavior?: No
PSI?: No
Social History
Tobacco: Smoker
Alcohol: Occasional
Drug: None
Personal: Single
Living: alone (Significant other)
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
Family History
Family History: Cancer (Mother with lung cancer at 51, father with lung cancer at 71 both )
Phy Exam
<JEFF Moore - Last Filed: 12/11/24 15:35>
General Physical Exam
General Presentation: no apparent distress
General age: appears stated age
General Skin: warm and dry
General Habitus: normal
General Mental: alert
Neurological Exam
Neurological Exam: alert and oriented x3
Musculoskeletal Exam
Musculoskeletal Exam: full ROM
Skin Exam
Skin Exam: normal color, warm/dry and other (Left breast with scattered erythema to the lower aspect of the breast appox 6 o clock extending to 9 o clock region + indurated and tender on exam )
Course
<JEFF Moore - Last Filed: 12/11/24 15:35>
Orders/Labs/Results
Orders:
Orders
12/11/24 13:08
US Breast Left Ltd Urgent
Comment:
Reason For Exam: swelling redness hx of abscess
12/11/24 13:09
IV Insert/Care/Rem.- Treatment PRN
12/11/24 13:25
Complete Blood Count/With Diff Urgent
Comprehensive Metabolic Panel Urgent
12/11/24 14:54
Acetaminophen 1000MG/100Ml [Ofirmev] 1,000 mg in 100 ml IV ONCE
Acetaminophen IV Indication:: ED Narcotic Naive Pt-ONCE
12/11/24 15:26
IRAD CONSULT Urgent
Consulting Provider: Tim Shea
Was physician already notified: Yes
Procedure being ordered, including laterality if applicable: I@D left breast
Acknowledgement that appropriate orders are entered: Yes
12/11/24 16:11
Vancomycin [Vancocin] 2,000 mg 0.9% Sodium Chloride 500 ml [Nss] 500 ml IV NOW
Abnormal Lab Results
12/11/24
13:25
RDW 14.9 H %
(11.5-14.5)
Absolute Lymphs (auto) 0.9 L 10^3/uL
(1.2-3.4)
Neutrophils % 75.7 H %
(42.2-75.2)
Lymphocytes % 12.6 L %
(20.5-51.1)
BUN 19 H mg/dl
(7-17)
Alkaline Phosphatase 160 H U/L
(38-126)
12/11/24 13:25
12/11/24 13:25
Vital Signs
Initial and Last Documented VS:
Initial Vital Signs
Temp Pulse BP
36.6 C 72 154/82
12/11/24 11:50 12/11/24 11:50 12/11/24 11:50
Last Documented Vital Signs
Temp Pulse Resp BP Pulse Ox
36.6 C 85 20 142/68 99
12/11/24 11:50 12/11/24 14:00 12/11/24 14:00 12/11/24 14:00 12/11/24 14:00
Risk Engineer consulted with Physician
Risk Engineer consulted with physician?: Yes
Name of Physician Consulted: Yin
<Tyrone Esqueda MD - Last Filed: 12/11/24 16:31>
Orders/Labs/Results
Orders:
Orders
12/11/24 13:08
US Breast Left Ltd Urgent
Comment:
Reason For Exam: swelling redness hx of abscess
12/11/24 13:09
IV Insert/Care/Rem.- Treatment PRN
12/11/24 13:25
Complete Blood Count/With Diff Urgent
Comprehensive Metabolic Panel Urgent
12/11/24 14:54
Acetaminophen 1000MG/100Ml [Ofirmev] 1,000 mg in 100 ml IV ONCE
Acetaminophen IV Indication:: ED Narcotic Naive Pt-ONCE
12/11/24 15:26
IRAD CONSULT Urgent
Consulting Provider: Tim Shea
Was physician already notified: Yes
Procedure being ordered, including laterality if applicable: I@D left breast
Acknowledgement that appropriate orders are entered: Yes
12/11/24 16:11
Vancomycin [Vancocin] 2,000 mg 0.9% Sodium Chloride 500 ml [Nss] 500 ml IV NOW
Abnormal Lab Results
12/11/24
13:25
RDW 14.9 H %
(11.5-14.5)
Absolute Lymphs (auto) 0.9 L 10^3/uL
(1.2-3.4)
Neutrophils % 75.7 H %
(42.2-75.2)
Lymphocytes % 12.6 L %
(20.5-51.1)
BUN 19 H mg/dl
(7-17)
Alkaline Phosphatase 160 H U/L
(38-126)
12/11/24 13:25
12/11/24 13:25
Vital Signs
Initial and Last Documented VS:
Initial Vital Signs
Temp Pulse BP
36.6 C 72 154/82
12/11/24 11:50 12/11/24 11:50 12/11/24 11:50
Last Documented Vital Signs
Temp Pulse Resp BP Pulse Ox
36.6 C 85 20 142/68 99
12/11/24 11:50 12/11/24 14:00 12/11/24 14:00 12/11/24 14:00 12/11/24 14:00
<JEFF Moore - Last Filed: 12/11/24 15:35>
MDM/Problems Addressed
Differential Diagnosis Includes:
not limited to : breast abcess/cellulitis
MDM/Problems Addressed:
Patient is a 49-year-old female with recurrent breast abscesses, patient was seen here 11/26 had an ultrasound which showed an abscess that had IR drainage. She reports symptoms worsened shortly after that drainage and started reoccurring. She was
started on doxycycline 2 days ago by family doctor but on exam she has obvious induration tenderness and swelling of the left breast. Ultrasound today does show a complex lobular fluid collection with internal debris and surrounding hyperemia
measuring 3.6 x 1.8 x 4.6 cm increased from prior. She denies any fevers and she is afebrile. She is normal white count. Case reviewed with Dr. Mckenna. will admit .
I reviewed last wound abscess culture which shows rare coag negative Staphylococcus few gram-positive cocci unable to identify due to insufficient growth.
Case reviewed with case at [facility] order IV vancomycin.
I did notify interventional radiology
<JEFF Moore - Last Filed: 12/11/24 15:35>
*Radiology
Radiology exam reviewed: radiology read reviewed
*Pulse Oximetry
Patient hypoxic: no
*Critical Care Note
Total Time (30-74mins, 75-104mins- exclusive of procedures): Not Applicable
Data Reviewed
Review of Other/Old Records Reveals: Other (previous ed visits )
<JEFF Moore - Last Filed: 12/11/24 15:35>
Patient Management
Discussion with other providers: Cv Rn (DR Mckenna )
ED Attending Note
<JEFF Moore - Last Filed: 12/11/24 15:35>
-
Portions of this chart may have been created with voice recognition software.� Occasional wrong word or��sound alike� substitutions may have occurred due to the inherent limitations of voice recognition software.
<Tyrone Esqueda MD - Last Filed: 12/11/24 16:31>
ED Attending Note
Patient seen and examined by attending physician: Yes
ED Attending Note:
I have seen and evaluated the patient with a [id number] encounter. I have spoken to the advance practicer provider and involved in the medical history, the physical exam, medical decision making.
Evaluation and management service: agree unless noted differently below.
Results interpretation: agree unless noted differently below.
Focused HPI: 49-year-old female with history as noted presents for evaluation of left breast pain, redness, swelling. Patient was seen last week and had breast abscess drained by interventional radiologist and was discharged after drainage by
interventional radiologist. She took a course of Bactrim and when the antibiotic course finished her symptoms quickly returned and she has had increased pain and swelling, redness. No fever. No drainage present. She was post see Dr. Mckenna but
with worsening symptoms came to the ER.
Physical exam: Awake alert not in distress. Vital signs normal. Female nurse practitioner performed breast exam�reportedly erythematous in the left lower breast, indurated and tender
Medical Decision Makin-year-old female presents with recurrent breast abscess. Vitals stable. Labs unremarkable. Ultrasound shows recurrent abscess. Nurse practitioner discussed with breast surgeon and interventional radiology�plan for
admission on IV antibiotics, iRad to drain.
Discharge Plan
Departure
Patient Disposition: Admit
Date of Disposition: 12/11/24
Time of Disposition: 15:34
Admit to: Med/Surg
Admit to doctor: hospitalist
Presentation/result/management discussed w/ accepting MD/DO: Hospitalist
Patient with high blood pressure during this ER visit?: Yes
Covid-19: Not Applicable
Discharge Problem:
Abscess of breast, left
Prescriptions:
No Action
ferrous sulfate [FeroSul] 325 MG tablet
325 mg PO Q48H
albuterol sulfate 1 PUFF HFA aerosol inhaler
2 puff inhalation R Q4HPRN PRN (Reason: sob/wheezing)
diltiazem HCl 180 MG capsule,extended release 24hr
180 mg PO DAILY Qty: 30 0RF
Patient Comments:
10/08/23- NO PHARMACY RECORD OR ECW RECORD OF THIS DRUG
guaifenesin [Mucinex] 600 mg Tablet Extended Release 12hr
600 mg PO Q12H PRN (Reason: chest congestion)
pantoprazole 20 mg tablet,delayed release (DR/EC)
20 mg PO DAILY PRN (Reason: gi issues)
spironolactone 25 mg Tablet
25 mg PO DAILY
Patient Comments:
10/08/23- NO PHARMACY RECORD OR ECW RECORD OF THIS DRUG
melatonin 5 mg Tablet
10 mg PO HS
bupropion HCl [Wellbutrin SR] 150 mg Tablet Sustained-Release 12 Hr
300 mg PO DAILY
acetaminophen [Tylenol] 325 mg Tablet
650 mg PO Q4H PRN (Reason: MILD PAIN)
rosuvastatin [Crestor] 20 mg Tablet
20 mg PO DAILY
cetirizine 10 mg Tablet
10 mg PO DAILY Qty: 30 0RF
prednisone 10 mg tablet
10 mg PO DIRECTED Qty: 42 0RF
Rx Instructions:
60mg for 2 days
50mg for 2 days
40mg for 2 days
30mg for 2 days
20mg for 2 days
10mg for 2 days
triamcinolone acetonide 0.1 % cream
1 applic topical TID Qty: 80 2RF
Referrals:
Maegan Sanchez DO [Family Provider] -
Discharge Date and Time
Print Language: BENGALI
[2024-12-11 13:33] LABS: % Eosinophils 3.5 % (0-6); % Immature Granulocytes 0.1 % (0-0.5); % Lymphocytes 12.6 % (20.5-51.1); % Monocytes 7.1 % (1.7-9.3); % Neutrophils 75.7 % (42.2-75.2); Absolute Basophils 0.1 10^3/uL (0-0.2); Absolute Eosinophils 0.2 10^3/uL (0-0.7); Absolute Lymphocytes 0.9 10^3/uL (1.2-3.4); Absolute Monocytes 0.5 10^3/uL (0.1-0.6); Absolute Neutrophils 5.2 10^3/uL (1.4-6.5); Hematocrit 46.5 % (37.0-47.0); Hemoglobin 15.5 g/dL (12.0-16.0); Mean Corp Hgb Conc. 33.3 g/dL (33.0-37.0); Mean Corpuscular Hgb 30.5 pg (27.0-31.0); Mean Corpuscular Volume 91.5 fL (81.0-99.0); Mean Platelet Volume 10.4 fL (7.4-10.4); Nucleated Red Blood Cells % 0 %; Platelet Count 220 10^3/uL (130-400); Red Blood Cell Count 5.08 10^6/uL (4.20-5.40); Red Cell Dist. Width 14.9 % (11.5-14.5); White Blood Cell Count 6.9 10^3/uL (4.8-10.8)
[2024-12-11 13:51] LABS: ALT (SGPT) 18 U/L (0-35); AST (SGOT) 25 U/L (14-36); Albumin 4.3 g/dl (3.5-5.0); Alkaline Phosphatase 160 U/L (38-126); Blood Urea Nitrogen 19 mg/dl (7-17); Calcium 9.9 mg/dl (8.4-10.2); Carbon Dioxide 24 mmol/L (22-30); Chloride 104 mmol/L (98-107); Glucose 92 mg/dl (70-99); Potassium 4.9 mmol/L (3.5-5.1); Sodium 138 mmol/L (135-145); Total Bilirubin 0.9 mg/dl (0.2-1.3); Total Protein 8.2 g/dl (6.3-8.2); eGFR > 60.00
[2024-12-11 14:00] VITALS: BP 142/68
[2024-12-11] MEDS: OFIRMEV 100 IV (15:02)
[2024-12-11 15:29] VITALS: BMI 46.4
[2024-12-11] MEDS: VANCOCIN 540 MG IV (16:26)
--- NOTE | 2024-12-11 17:22 | HPS.HSE ---
Addendum entered and electronically signed by Canelo Vargas MD 12/11/24 18:06:
I saw and examined the patient.
The MANAGER BUILDING's note was reviewed and I agree with the note.
Comment:
49-year-old female with extensive past medical history who is presenting with complaints of left breast abscess. Of note abscess was drained by interventional radiology 4 days ago. Patient was supposed to follow-up with breast surgeons on Friday
however thinks she is starting to develop new abscess. Patient saw primary doctor placed on doxycycline. Patient reports of increasing redness pain and swelling to the area. Denies any fevers. States the pain reoccurred post drainage. States
she has been on 2 antibiotics so far. States of chronic R breast drainage and follows Dr. Mckenna. Had appointment last which was rescheduled for Friday.
General: Pain; No Fever or Chills, morbidly obese
HEENT: NormoCephalic, Anicteric, Moist mucous membranes, [place] Conjunctivae and No Ptosis
Respiratory: Clear; No Wheezes, Rales or Rhonchi
Cardiac: S1/S2, Regular Rhythm and Peripheral Edema (+1 bilateral legs); No Murmur, Rub or Gallop
GI: Soft, Non Tender, Non Distended, Normal Bowel Sounds
Musculoskeletal: bl le edema
Skin: Warm, Dry and Other (Chronic psoriatic plaques to dorsal hands, bilateral inner thighs, scalp, posterior back)
Neuro: AO x 3, No Motor Deficits, Nonfocal/grossly intact,
Psych: Calm
Impression
Recurrent left sided breast abscess
Chronic HFrEF
primary hypertension
DVT and PE status post IVC filter placement
COPD and restrictive pulmonary disease
Morbid obesity with excess calories
Hyperlipidemia
Anxiety
Chronic anemia
Hepatic steatosis
GERD
Pulmonary Hypertension
Plan
Interventional radiology consulted for drainage
Fluid cultures ordered
Unclear about how accurate results would be as patient already on antibiotic
Ordered IV vancomycin
Will await further recs of surgery
Continue with home medication
DVT prophylaxis - hep sc
I spent a total of 80 minutes with the patient or on the floor. More than 50% of this time involved counseling and coordination of care.
Original Note:
Family Physician
-
Family Physician: Maegan Sanchez DO
Chief Complaint
-
Red swollen cellulitis breast with abscess, bilateral nipple discharge
History of Present Illness
49-year-old female who states she has had a red swollen cellulitic breast in November requiring IR drainage on 11/26/2024 she completed course of Bactrim DS. She reports a couple days ago the breast became red and inflamed again she was placed on
doxycycline approximately 3 days ago by her PCP. She also reports chronic drainage from her nipples milky white in color for years she states she has not had this checked out due to lack of a car for years lack of a job. She does report having 1
mammogram in 2013 after a breast abscess on the left side she had a benign lumpectomy. I strongly advised the patient to discuss this with the breast surgeon as an ultrasound in 2020 showed a mass in the right breast. She denies current fever,
chills, chest pain, palpitations, cough, shortness of breath, abdominal pain, nausea, vomiting, diarrhea, urinary symptoms. She has chronic peripheral edema due to chronic CHF. She takes her torsemide every other day instead of daily as prescribed
as she states she would become dehydrated if taking daily.
She has past medical history CAD/MT, chronic diastolic heart failure with chronic peripheral edema, new pulmonary HTN as of echo 12/06/2024, HTN, HLD, PE 2013 unprovoked, PE 2014 unprovoked status post IVC filter, active smoker, question COPD, HLD,
anxiety/depression, iron deficiency anemia, chronic fatty liver, GERD, dysfunctional uterine bleeding status post D&C and uterine ablation December 2022, GI bleed secondary to polyp 2021, chronic sinusitis, insomnia, chronic knee pain, psoriasis,
recurrent left breast abscess, right breast mass 2020 not followed, chronic bilateral nipple drainage times years, chronic tinea intertrigo, class III obesity�BMI 46.3
Medical History
Past Medical History
Past Medical History: Reports Other
Additional Past Medical History:
CAD/MT
Chronic diastolic heart failure with chronic peripheral edema
New Pulmonary HTN as of echo 12/06/2024 PASP 70 mmHg
HTN
HLD
PE 2013 unprovoked, PE 2014 unprovoked status post IVC filter
Active smoker-1/2 pack a day x 36 years
Question COPD
Alcohol use 2-3 drinks on Fridays and Saturdays vodka or whiskey
HLD
Anxiety/depression
iron deficiency anemia
chronic fatty liver
GERD
Dysfunctional uterine bleeding status post D&C and uterine ablation December 2022
GI bleed secondary to polyp 2021
Chronic sinusitis
Insomnia
Chronic knee pain
Psoriasis
Recurrent left breast abscess status post IR drainage 11/26/2024
Right breast mass 09/2020 not followed-6.8 mm reniform-shaped hypoechoic mass in the upper outer quadrant of the right breast
Chronic bilateral nipple drainage times years
chronic tinea intertrigo breasts,
Class III obesity�BMI 46.3
Past Surgical History: Reports Other
Additional Past Surgical History:
PE 2014 status post IVC filter
Left breast lumpectomy -2013
Left breast abscess drainage 11/26/2024
Tubal ligation 2007
section 2003
D&C 2022
Uterine ablation 2022 May due to dysfunctional uterine bleeding
GI bleed from polyp 2021
Social History
Tobacco: Smoker (36-year half pack a day)
Alcohol: Occasional (Drinks average 6 drinks on Fridays and Saturdays vodka or [place] whiskey with ojse elias)
Personal: Partner
Living: Other (Currently living at her friend's house)
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
Family History
Family History: Other (Mother age 51 lung cancer father age 71 lung cancer also history of hypertension)
Allergies / Home Medications
Allergies reflects when Allergies were last updated in [facility].
Home Medications with original date entered in [facility]
Allergy/Medication List:
Allergies
Allergy/AdvReac Type Severity Reaction Status Date / Time
amoxicillin Allergy Rash on Verified 11/26/24 12:48
hands
naproxen Allergy heart Verified 11/26/24 12:48
palpitaitons
pollen extracts Allergy SOB;congest Verified 11/26/24 12:48
ion
Home Medications
ferrous sulfate 325 mg (65 mg iron) tablet (FeroSul) 325 mg PO Q48H Supplement/anemia 02/10/15
albuterol sulfate 90 mcg/actuation aerosol inhaler 2 puff inhalation R Q4HPRN PRN sob/wheezing 10/01/17
diltiazem HCl 180 mg capsule,extended release 24 hr 180 mg PO DAILY Heart disease/condition #30 caps 09/28/20
pantoprazole 20 mg tablet,delayed release 20 mg PO DAILY PRN gi issues 08/06/23
spironolactone 25 mg tablet 25 mg PO DAILY 08/07/23
melatonin 5 mg tablet 10 mg PO HS 08/30/23
acetaminophen 325 mg tablet (Tylenol) 650 mg PO Q4H PRN MILD PAIN 10/08/23
bupropion HCl 150 mg tablet,12 hr sustained-release (Wellbutrin SR) 300 mg PO DAILY 10/08/23
rosuvastatin 20 mg tablet (Crestor) 20 mg PO DAILY 10/08/23
cetirizine 10 mg tablet 10 mg PO DAILY #30 tabs 10/09/23
doxycycline hyclate 100 mg PO BID 12/11/24
ibuprofen 600 mg PO Q8H PRN knee pain 12/11/24
torsemide 20 mg PO Q48H 12/11/24
Review of Systems
-
History Source: Patient
A 12 point ROS was completed and negative except as noted: Yes
Constitutional: Denies Fever or Chills
EENT: Denies Sore Throat or Runny Nose
Respiratory: Denies Cough or Trouble Breathing
Cardiac: Denies Chest Pain, Palpitations or Syncope
Abdomen/GI: Denies Abdominal Pain, Nausea, Vomiting, Diarrhea, Constipated or Bloody Stools
: Denies Dysuria, Frequency, Flank Pain, Incontinence, Difficulty Voiding or Urgency
Musculoskeletal: Reports Edema (+1 bilateral leg edema); Denies Joint Pain
Skin: Reports Other (Left breast abscess around areola with surrounding cellulitis, nipple discharge milky in color, open center of nipple right breast with milky discharge,Chronic psoriatic plaques to dorsal hands, bilateral inner thighs, scalp,
posterior back); Denies Itching or Rash
Neurological: Denies Dizzy or Headache
Endocrine: Reports No Symptoms
Hematologic/Lymphatic: Reports No Symptoms
Psych: Reports Calm
Physical Exam
Vital Signs
Vital Signs
Temp Pulse Resp BP Pulse Ox
97.9 F 85 20 142/68 99
12/11/24 11:50 12/11/24 14:00 12/11/24 14:00 12/11/24 14:00 12/11/24 14:00
Physical Exam
General: Pain; No Fever or Chills
HEENT: NormoCephalic, Anicteric, Moist mucous membranes, PERRLA, [place] Conjunctivae and No Ptosis
Respiratory: Clear; No Wheezes, Rales or Rhonchi
Cardiac: S1/S2, Regular Rhythm and Peripheral Edema (+1 bilateral legs); No Murmur, Rub or Gallop
Breast: Nipple Discharge and Other (Left breast abscess around areola with surrounding cellulitis, nipple discharge milky in color, open center of nipple right breast with milky discharge)
GI: Soft, Non Tender, Non Distended, Normal Bowel Sounds and No Hepatosplenomegaly
Rectal: Deferred by Provider
Genito-urinary: Deferred by me
Musculoskeletal: No Clubbing, No Cyanosis, Edema, Left Lower Extremity (+1) and Edema, Right Lower Extremity (+1); No Edema, Left Upper Extremity or Edema, Right Upper Extremity
Skin: Warm, Dry and Other (Chronic psoriatic plaques to dorsal hands, bilateral inner thighs, scalp, posterior back)
Neuro: AO x 3, No Motor Deficits, Nonfocal/grossly intact, Cranial Nerves Intact and No Sensory Deficits; No Slurred Speech, Facial Droop, Tremors or Sedated
Psych: Calm
Laboratory Results
-
12/11/24 13:25
12/11/24 13:25
Laboratory Results
Total Bilirubin 0.9 mg/dl (0.2-1.3) 12/11/24 13:25
AST 25 U/L (14-36) 12/11/24 13:25
ALT 18 U/L (0-35) 12/11/24 13:25
Alkaline Phosphatase 160 U/L (38-126) H 12/11/24 13:25
Impression/Plan
-
Impression/plan:
Admit to MedSurg
#Recurrent LEFT breast abscess/cellulitis
#Recent drainage by IR on 11/26/2024�completed course of Bactrim DS
#Chronic tinea intertrigo breasts,
-Currently on day 3 of doxycycline
-Consult IR for drainage
-Consult Dr. Chery
- IV vancomycin
- Follow CBC, BMP
Ultrasound left breast:
Scanning over the retroareolar left breast area of interest demonstrates a complex lobular fluid collection with internal debris and surrounding hyperemia,
measuring approximately 3.6 x 1.8 x 4.6 cm, slightly increased from prior and suggestive of abscess.
#RIGHT breast/LEFT breast NIPPLE DISCHARGE x several years concern for possible malignancy given discharge and prior mass 2020 on followed
#History of RIGHT breast cellulitis mastitis/mass intramammary lymph node 09/25/2020 not followed up on
#History of Left lumpectomy 2013 benign, only mammogram 2013
- Patient denies history of recent mammogram
- Consult Breast surgery
Ultrasound RIGHT breast 09/25/2020: 6.8 mm reniform-shaped hypoechoic mass in the upper outer quadrant of the right breast which has a sonographic appearance most suggestive of an intramammary
lymph node(probably present on the chest CTA examination performed 09/25/2020).
#Chronic diastolic CHF�stage III increased from stage I
I/O, daily weights
-Continue torsemide 20 mg daily
2D echo 12/06/2024: EF 55%, mild LVH, normal LVSF, flattened septum in systole and diastole consistent with RV pressure and volume overload, mild dilated left atrium, mild to moderate mitral stenosis, trace MR, mild TR, PASP 70 mmHg
#Pulmonary hypertension-NEW on echo 12/06/2024
PASP 70 mmHg on echo 12/06/2024
Recommend follow-up with cardiology
#CAD/MT
- Continue Crestor
# HTN
- Continue diltiazem 180 mg daily
#HLD
Continue Crestor 20 mg every afternoon
# PE 2013 unprovoked, PE 2014 unprovoked status post IVC filter
-Advised patient to have outpatient hematological workup as she never followed up
#Active smoker-1/2 pack a day x 36 years
#Question COPD
-Cessation advised
-Continue albuterol nebs
-Encourage patient to resume her Flovent discus she has not taken in she believes a few years
#Alcohol use 2-3 drinks on Fridays and Saturdays vodka or whiskey
Recommend no more than 7 drinks per week
# Anxiety/depression
-Continue Wellbutrin�patient states takes for smoking cessation
#Iron deficiency anemia
-Continue ferrous sulfate 325 mg daily
#Chronic fatty liver
#GERD
-Continue Protonix 20 mg daily
#Insomnia
- Continue melatonin 5 mg at bedtime
#Class III obesity�BMI 46.3
Affects all aspects of care
Weight loss recommended
Other PMH:
Dysfunctional uterine bleeding status post D&C and uterine ablation December 2022
GI bleed secondary to polyp 2021
Chronic sinusitis
Chronic knee pain�takes occasional Motrin
Psoriasis-is following up outpatient
DVT prophylaxis
Subcu heparin
Full code
[2024-12-11 17:57] VITALS: BP 123/75
[2024-12-11 19:45] VITALS: BP 147/79; BMI 46.6
[2024-12-11] MEDS: DEMADEX PO (20:08)
[2024-12-11] MEDS: FEOSOL PO (20:09)
[2024-12-11] MEDS: PERCOCET 5/325 2 TABLET PO (20:18)
[2024-12-11] MEDS: ZOFRAN 4 MG IV (20:19)
[2024-12-11] MEDS: HEPARIN 5000 UNITS SC (20:19)
--- NOTE | 2024-12-11 20:38 | PHA.VAN.IN ---
Assessment
- Assessment
Renal Function: Appears similar to baseline
Maximum Temperature: 97.9
Minimum Temperature: 97.7
AUC Dosing Plan
- Dosing Variables
Dosing Weight (kg): 123
Dosing CrCl (ml/min): 110
Vd coefficient (L/kg): 0.5
- Empiric Dosing
Initial / Loading Dose: 2000MG 12/11
Maintenance Regimen: 1250MG Q12H to start on 12/12
Estimated AUC (mcg*h/mL): 455
Estimated Peak (mcg*h/mL): 29.8
Estimated Trough (mcg/ml): 10.9
Estimated Half Life (H): 7.2
- Monitoring
No levels ordered at this time: Consider levels in next few days
Pharmacokinetics Vancomycin I
- -
Patient Age: 49
Patient Sex: Female
Vancomycin Day #: 1
Indication: Skin And Soft Tissue
Requesting Provider: Baltazar LOPEZ
Pertinent Antimicrobial Allergies:
AMOXICILLIN
Height / Weight:
Height 5 ft 4 in
Actual Weight 123.15 kg
Pertinent Past Medical History: DVT/PE
- Vital Signs / Lab Results
Temp Pulse Resp BP Pulse Ox
97.7 F 82 18 147/79 98
12/11/24 19:45 12/11/24 19:45 12/11/24 19:45 12/11/24 19:45 12/11/24 19:45
Lab Results - Hematology
12/11/24
13:25
WBC 6.9
Lab Results - Chemistry
12/11/24
13:25
BUN 19 H
Creatinine 0.8
Albumin 4.3
[2024-12-11] MEDS: MELATONIN 10 MG PO (21:42)
[2024-12-11 23:40] VITALS: BP 110/57
[2024-12-12] VITALS (8 sets, daily range): BP systolic 57–140; BP diastolic 60–84; BMI 46.0
[2024-12-12] MEDS: VANCOCIN 275 MG IV ×2 (06:04→17:00)
[2024-12-12] MEDS: ROXICODONE 5 MG PO ×2 (06:10→12:00)
[2024-12-12 06:31] LABS: % Basophils 0.9 % (0-2); % Eosinophils 3.6 % (0-6); % Immature Granulocytes 0.2 % (0-0.5); % Monocytes 5.4 % (1.7-9.3); % Neutrophils 77.9 % (42.2-75.2); Absolute Basophils 0.1 10^3/uL (0-0.2); Absolute Eosinophils 0.2 10^3/uL (0-0.7); Absolute Lymphocytes 0.7 10^3/uL (1.2-3.4); Absolute Monocytes 0.3 10^3/uL (0.1-0.6); Absolute Neutrophils 4.4 10^3/uL (1.4-6.5); Hematocrit 44.4 % (37.0-47.0); Hemoglobin 14.5 g/dL (12.0-16.0); Mean Corp Hgb Conc. 32.7 g/dL (33.0-37.0); Mean Corpuscular Hgb 30.6 pg (27.0-31.0); Mean Corpuscular Volume 93.7 fL (81.0-99.0); Mean Platelet Volume 11.1 fL (7.4-10.4); Nucleated Red Blood Cells % 0 %; Platelet Count 202 10^3/uL (130-400); Red Blood Cell Count 4.74 10^6/uL (4.20-5.40); Red Cell Dist. Width 14.9 % (11.5-14.5); White Blood Cell Count 5.6 10^3/uL (4.8-10.8)
--- NOTE | 2024-12-12 08:42 | W.PN.UPDATE ---
Update Note
Progress Note Update
US guided drainage catheter placed into abscess in the subareolar region of the left breast. Drained 10 cc of purulent fluid, sent for C+S.
--- NOTE | 2024-12-12 09:33 | PHA.VAN.FU ---
Vancomycin Assessment / Plan
- Assessment
Renal Function: No New Labs Today
WBC's are: WNL
In the past 24 hrs, patient has been: Afebrile
- Dosing Plan
Continue: VANCO 1250MG Q12
- Monitoring Plan
No level(s) ordered at this time: CONSIDER LEVEL IN NEXT FEW DAYS
- Follow Up
Pharmacy will continue to follow.
Vancomycin Follow UP
- -
Patient Age: 49
Patient Sex: Female
Vancomycin Day #: 2
Indication: Skin And Soft Tissue
Requesting Provider: Baltazar LOPEZ
Pertinent Antimicrobial Allergies:
AMOXICILLIN
Height / Weight:
Height 5 ft 4 in
Actual Weight 121.364 kg
Pertinent Past Medical History: DVT/PE
- Vital Signs / Lab Results
Temp Pulse Resp BP Pulse Ox
98 F 57 17 107/61 94
12/12/24 08:50 12/12/24 09:07 12/12/24 09:07 12/12/24 09:07 12/12/24 09:00
Lab Results - Hematology
12/11/24 12/12/24
13:25 06:16
WBC 6.9 5.6
Lab Results - Chemistry
12/11/24
13:25
BUN 19 H
Creatinine 0.8
Albumin 4.3
[2024-12-12] MEDS: WELLBUTRIN SR (12 hour sustained release) 300 MG PO (09:48)
[2024-12-12] MEDS: CARDIZEM CD PO (09:48)
[2024-12-12] MEDS: ALDACTONE PO (09:48)
[2024-12-12] MEDS: HEPARIN 5000 UNITS SC (09:49)
[2024-12-12] MEDS: CRESTOR 20 MG PO (09:49)
[2024-12-12] MEDS: ZYRTEC 10 MG PO (09:49)
[2024-12-12] MEDS: ROBITUSSIN 200 MG PO ×2 (09:52→21:42)
--- NOTE | 2024-12-12 10:25 | CM ---
Met with patient. She states the place she and her SO were at is no longer available. He has moved back home and she is with a friend. This she says is temporary situation. Her adult dgtr has her own place. [employer]AGE [employer]ER[employer] she is independent.
PCP Dr. Maegan Sanchez.
RX: [facility].
she has had [facility] in past.
She does not anticipate any discharge needs.
CM consult for advanced directive. Patient states she just wants to see papers that show what one is. CM provided paper copies.
PLAN: home with outpatient medical follow up.
--- NOTE | 2024-12-12 11:30 | W.PN.HOSP.TC ---
Today's Communication/Plan
-
Continue with IV vancomycin
Monitor ABEBA drain output
Await surgery evaluation
Follow-up on the culture data
Assessment / Plan
Assessment / Plan
General: Pain; No Fever or Chills
HEENT: NormoCephalic, Anicteric, Moist mucous membranes,
Respiratory: Clear; No Wheezes, Rales or Rhonchi
Cardiac: S1/S2, Regular Rhythm and Peripheral Edema (+1 bilateral legs);
Breast: Nipple Discharge and Other (Left breast erythema significant with ABEBA drain with serosanguineous with mildly bloody fluid noted)
GI: Soft, Non Tender, Non Distended, Normal Bowel Sounds
Musculoskeletal: No Clubbing, No Cyanosis, Edema, Left Lower Extremity (+1) and Edema, Right Lower Extremity (+1); No Edema, Left Upper Extremity or Edema, Right Upper Extremity
Skin: Warm, Dry and Other (Chronic psoriatic plaques to dorsal hands, bilateral inner thighs, scalp, posterior back)
Neuro: AO x 3, No Motor Deficits, Nonfocal/grossly intact, Cranial Nerves Intact and No Sensory Deficits; No Slurred Speech, Facial Droop, Tremors or Sedated
Psych: Calm
#Recurrent LEFT breast abscess/cellulitis
#Recent drainage by IR on 11/26/2024�completed course of Bactrim DS
#Chronic tinea intertrigo breasts,
-Currently on day 3 of doxycycline
- Status post ABEBA drain placement by [facility]
-Consult Dr. Chery for further management
- IV vancomycin
- Follow on the abscess culture.
#RIGHT breast/LEFT breast NIPPLE DISCHARGE x several years concern for possible malignancy given discharge and prior mass 2020 on followed
#History of RIGHT breast cellulitis mastitis/mass intramammary lymph node 09/25/2020 not followed up on
#History of Left lumpectomy 2013 benign, only mammogram 2013
- Patient denies history of recent mammogram
- Consult Breast surgery
#Chronic diastolic CHF�stage III increased from stage I
I/O, daily weights
-Continue torsemide 20 mg daily
2D echo 12/06/2024: EF 55%, mild LVH, normal LVSF, flattened septum in systole and diastole consistent with RV pressure and volume overload, mild dilated left atrium, mild to moderate mitral stenosis, trace MR, mild TR, PASP 70 mmHg
#Pulmonary hypertension-NEW on echo 12/06/2024
PASP 70 mmHg on echo 12/06/2024
Recommend follow-up with cardiology
#CAD/AK
- Continue Crestor
# HTN
- Continue diltiazem 180 mg daily
#HLD
Continue Crestor 20 mg every afternoon
# PE 2013 unprovoked, PE 2014 unprovoked status post IVC filter
-Advised patient to have outpatient hematological workup as she never followed up
#Active smoker-1/2 pack a day x 36 years
#Question COPD
-Cessation advised
-Continue albuterol nebs
-Encourage patient to resume her Flovent discus she has not taken in she believes a few years
#Alcohol use 2-3 drinks on Fridays and Saturdays vodka or whiskey
Recommend no more than 7 drinks per week
# Anxiety/depression
-Continue Wellbutrin�patient states takes for smoking cessation
#Iron deficiency anemia
-Continue ferrous sulfate 325 mg daily
#Chronic fatty liver
#GERD
-Continue Protonix 20 mg daily
#Insomnia
- Continue melatonin 5 mg at bedtime
#Class III obesity�BMI 46.3
Affects all aspects of care
Weight loss recommended
Other PMH:
Dysfunctional uterine bleeding status post D&C and uterine ablation December 2022
GI bleed secondary to polyp 2021
Chronic sinusitis
Chronic knee pain�takes occasional Motrin
Psoriasis-is following up outpatient
DVT prophylaxis
Subcu heparin
Full code
Anticipated Discharge: > 48 hours
Subjective/Interval History
-
Date of Service: December 12, 2024
States the pain at the left breast drainage site
Objective Data
-
Labs:
Laboratory Results
12/12/24
06:16
WBC 5.6
Hgb 14.5
Hct 44.4
Plt Count 202
Vital Signs:
Vital Signs
Temp Pulse Resp BP Pulse Ox
98 F 57 17 107/61 94
12/12/24 08:50 12/12/24 09:48 12/12/24 09:07 12/12/24 09:48 12/12/24 09:00
I&O
12/11/24 12/12/24 12/13/24
06:59 06:59 06:59
Intake Total 480 / 480 100 / 100
Balance 480 / 480 100 / 100
[2024-12-12] MEDS: MORPHINE SULFATE 1 MG IV ×2 (13:21→21:45)
[2024-12-12] MEDS: ZOFRAN 4 MG IV (14:01)
[2024-12-12] MEDS: HEPARIN SC ×2 (19:24→19:27)
[2024-12-12] MEDS: MOTRIN 600 MG PO (19:24)
[2024-12-12] MEDS: ROBITUSSIN PO (19:24)
[2024-12-12] MEDS: MELATONIN 10 MG PO (21:39)
[2024-12-12] MEDS: TYLENOL 650 MG PO (21:40)
--- NOTE | 2024-12-12 22:36 | W.PN.UPDATE ---
Update Note
Progress Note Update
Pt was set to see me in Clinic Friday for a breast abscess but returned to the ED for worsening symptoms. She underwent IR drainage and catheter placement. Cultures are pending to direct antibiotic therapy.
Will follow.This collection is still at a size that would be managed in a non-open fashion.
[2024-12-13 06:00] VITALS: BMI 46.6
[2024-12-13] MEDS: VANCOCIN 275 MG IV ×2 (06:12→17:24)
[2024-12-13] MEDS: MOTRIN 600 MG PO (06:30)
[2024-12-13 07:40] VITALS: BP 130/72
[2024-12-13 08:33] LABS: % Basophils 1.1 % (0-2); % Eosinophils 5.1 % (0-6); % Immature Granulocytes 0.4 % (0-0.5); % Monocytes 10.2 % (1.7-9.3); % Neutrophils 67.2 % (42.2-75.2); Absolute Basophils 0.1 10^3/uL (0-0.2); Absolute Eosinophils 0.2 10^3/uL (0-0.7); Absolute Lymphocytes 0.7 10^3/uL (1.2-3.4); Absolute Monocytes 0.5 10^3/uL (0.1-0.6); Hematocrit 42.2 % (37.0-47.0); Hemoglobin 13.7 g/dL (12.0-16.0); Mean Corp Hgb Conc. 32.5 g/dL (33.0-37.0); Mean Corpuscular Hgb 30.3 pg (27.0-31.0); Mean Corpuscular Volume 93.4 fL (81.0-99.0); Mean Platelet Volume 11.1 fL (7.4-10.4); Nucleated Red Blood Cells % 0 %; Platelet Count 192 10^3/uL (130-400); Red Blood Cell Count 4.52 10^6/uL (4.20-5.40); Red Cell Dist. Width 14.6 % (11.5-14.5); White Blood Cell Count 4.5 10^3/uL (4.8-10.8)
[2024-12-13] MEDS: ZYRTEC 10 MG PO (08:45)
[2024-12-13] MEDS: WELLBUTRIN SR (12 hour sustained release) 300 MG PO (08:46)
[2024-12-13] MEDS: CARDIZEM CD PO (08:46)
[2024-12-13] MEDS: ALDACTONE PO (08:47)
[2024-12-13] MEDS: CRESTOR 20 MG PO (08:47)
[2024-12-13] MEDS: HEPARIN 5000 UNITS SC (08:48)
[2024-12-13] MEDS: ROBITUSSIN 200 MG PO ×2 (08:59→21:20)
--- NOTE | 2024-12-13 10:20 | W.PN.HOSP.TC ---
Today's Communication/Plan
-
ID consult
Await culture
Assessment / Plan
Assessment / Plan
Gen-AAOx3, NAD
HEENT-NC, AT, anicteric, clear oral mm
Neck-supple
CV-reg, no M, +S1/S2
Lungs-clear B/L
Abd-soft, NT, ND
Ext-no edema
Musculoskeletal-no cyanosis, clubbing
Skin-warm and dry
Neuro-grossly non-focal
Psych-calm, cooperative
Recurrent LEFT breast abscess/cellulitis
Recent drainage by IR on 11/26/2024�completed course of Bactrim DS
Chronic tinea intertrigo breasts,
- Status post ABEBA drain placement by [facility]
-Consult Dr. Chery for further management
MRSA screen negative. Gram stain of abscess fluid shows gram-positive cocci, gram-negative rods, gram-positive rods. Many WBCs. Culture pending. Previous abscess culture from November was insufficient for growth.
- Follow on the abscess culture.
Consult infectious disease
RIGHT breast/LEFT breast NIPPLE DISCHARGE x several years concern for possible malignancy given discharge and prior mass 2020 on followed
History of RIGHT breast cellulitis mastitis/mass intramammary lymph node 09/25/2020 not followed up on
History of Left lumpectomy 2013 benign, only mammogram 2013
- Patient denies history of recent mammogram
- Consult Breast surgery
Chronic diastolic CHF�stage III increased from stage I
I/O, daily weights
-Continue torsemide 20 mg daily
2D echo 12/06/2024: EF 55%, mild LVH, normal LVSF, flattened septum in systole and diastole consistent with RV pressure and volume overload, mild dilated left atrium, mild to moderate mitral stenosis, trace MR, mild TR, PASP 70 mmHg
Pulmonary hypertension-NEW on echo 12/06/2024
PASP 70 mmHg on echo 12/06/2024
Recommend follow-up with cardiology
CAD/PA
- Continue Crestor
Essential HTN
- Continue diltiazem 180 mg daily
HLD
Continue Crestor 20 mg every afternoon
PE 2013 unprovoked, PE 2014 unprovoked status post IVC filter
-Advised patient to have outpatient hematological workup as she never followed up
Active smoker-1/2 pack a day x 36 years
Question COPD
-Cessation advised
-Continue albuterol nebs
-Encourage patient to resume her Flovent discus she has not taken in she believes a few years
Alcohol use 2-3 drinks on Fridays and Saturdays vodka or whiskey
Recommend no more than 7 drinks per week
Anxiety/depression
-Continue Wellbutrin�patient states takes for smoking cessation
Iron deficiency anemia
-Continue ferrous sulfate 325 mg daily
Chronic fatty liver
GERD
-Continue Protonix 20 mg daily
Insomnia
- Continue melatonin 5 mg at bedtime
Class III obesity�BMI 46.3
Affects all aspects of care
Weight loss recommended
Other PMH:
Dysfunctional uterine bleeding status post D&C and uterine ablation December 2022
GI bleed secondary to polyp 2021
Chronic sinusitis
Chronic knee pain�takes occasional Motrin
Psoriasis-is following up outpatient
DVT prophylaxis
Subcu heparin
Full code
Anticipated Discharge: > 48 hours
Subjective/Interval History
-
Date of Service: December 13, 2024
Patient seen and examined. No complaints.
Objective Data
-
Labs:
Laboratory Results
12/13/24
08:08
WBC 4.5 L
Hgb 13.7
Hct 42.2
Plt Count 192
Vital Signs:
Vital Signs
Temp Pulse Resp BP Pulse Ox
97.7 F 59 16 130/72 97
12/13/24 07:40 12/13/24 08:47 12/13/24 07:40 12/13/24 08:47 12/13/24 08:48
I&O
12/12/24 12/13/24 12/14/24
06:59 06:59 06:59
Intake Total 480 / 480 2500 / 2500 480 / 480
Balance 480 / 480 2500 / 2500 480 / 480
Review of Systems
-
History Source: Patient
All other systems: Reviewed and negative
--- NOTE | 2024-12-13 10:58 | PHA.VAN.FU ---
Vancomycin Assessment / Plan
- Assessment
Renal Function: No New Labs Today
WBC's are: Trending Down
In the past 24 hrs, patient has been: Afebrile
Concomitant Antimicrobials: none
- Dosing Plan
Continue: vancomycin 1250 mg q12h- 1st dose 12/12 0600 after 2 g LD 12/11
- Monitoring Plan
Peak Level: 12/13/24 [id number] - after 4th maint dose
Trough Level: 12/14/2430
- Follow Up
Pharmacy will continue to follow.
Vancomycin Follow UP
- -
Patient Age: 49
Patient Sex: Female
Vancomycin Day #: 3
Indication: Skin And Soft Tissue
Requesting Provider: Baltazar LOPEZ
Pertinent Antimicrobial Allergies:
AMOXICILLIN
Height / Weight:
Height 5 ft 4 in
Actual Weight 123.065 kg
Pertinent Past Medical History: DVT/PE
- Vital Signs / Lab Results
Temp Pulse Resp BP Pulse Ox
97.7 F 59 16 130/72 97
12/13/24 07:40 12/13/24 08:47 12/13/24 07:40 12/13/24 08:47 12/13/24 08:48
Lab Results - Hematology
12/11/24 12/12/24 12/13/24
13: 06:16 08:08
WBC 6.9 5.6 4.5 L
Lab Results - Chemistry
12/11/24
13:25
BUN 19 H
Creatinine 0.8
Albumin 4.3
Microbiology Results
12/11/24 20:29 MRSA Screen - Final
Nose No Methicillin Resistant Staphylococcus aureus isolated.
12/12/24 08:40 Gram Stain - Preliminary
Breast - Left
[2024-12-13] MEDS: MORPHINE SULFATE 1 MG IV (11:24)
--- NOTE | 2024-12-13 12:24 | CM ---
Patient seen bedside.
Patient aware of CM availability should needs arise.
Plan: home no needs anticipated.
[2024-12-13] MEDS: ROXICODONE 5 MG PO ×2 (15:05→21:19)
--- NOTE | 2024-12-13 15:16 | CON.ID ---
Consultation
-
Date/Time Consultation Requested: 12/13/2024 0905
Date/Time Consultation Performed: 12/13/2024 1445
Requesting Provider: Dr. Montanez
Performing Provider: Dr. Viveros
Reason for Consultation: Left breast infection
Chief Complaint / Past History
History of Present Illness
Marjan Escobar is a 49-year-old female being evaluated at the request of Dr. Montanez in regards to left breast abscess. History is obtained from chart review, along with patient interview.
The patient reports a longstanding history of issues with her milk ducts (?chronic mastitis) dating back to the . She reports that she has had issues with the bilateral nipple areas, and in 2011 she developed a significant lump behind both
nipples. In 2012 she underwent a lumpectomy, and since that time she notes occasional 'flareups' where the breast would become inflamed. She notes that she has had prior I&D's of the bilateral breast area, and has had drainage from these holes for
the past 12 years. In the interim, she has not routinely followed with a breast surgeon. She notes that approximately 3 weeks ago the hole on the left breast area 'closed up' and over that timeframe she developed increasing swelling behind the
left nipple area. Around 12/07 she again was found to have a left breast abscess and she underwent drain placement by IR. She evidently had been seen by her PCP and placed on course of doxycycline, but she presents back to the ER on 12/11 secondary
to increasing swelling. She was not found to have a leukocytosis, and since admission she has remained afebrile. Infectious Diseases is asked to comment upon further antimicrobial therapy.
Past History
Additional Past Medical History:
CAD; Hx [place]
CHF
COPD
HTN
Dyslipidemia
Anxiety/depression
DVT/PE
Morbid obesity
Lymphedema
ILEANA
Additional Past Surgical History:
Tubal ablation
Endometrial embolization for uterine fibroids laminectomy
IVC filter placement
Right lumpectomy
Allergy History:
amoxicillin Allergy (Verified 11/26/24 12:48)
Rash on hands
naproxen Allergy (Verified 11/26/24 12:48)
heart palpitaitons
pollen extracts Allergy (Verified 11/26/24 12:48)
SOB;congestion
Medications Reviewed: Yes
Current Antibiotics:
vancomycin
Social History
Tobacco: Smoker
Alcohol: Occasional
Drug: None
Personal: Single
Family History
Family History: Not Pertinent
Review of Systems
Vital Signs
Temp Pulse Resp BP Pulse Ox
97.7 F 59 16 130/72 97
12/13/24 07:40 12/13/24 08:47 12/13/24 07:40 12/13/24 08:47 12/13/24 08:48
Physical Exam
Physical Exam
Constitutional: No Acute Distress, Comfortable and Non-toxic
Head: Normocephalic
Eyes: Pupils Equal, Pupils Round, No Conjunctival Hemorrhage and Sclera Anicteric
Oral: No Thrush
Cardiovascular: S1/S2; Negative S3/S4 or Murmur
Pulmonary: Non Labored; Negative Wheezes or Rales
Gastrointestinal: Soft and Non Tender
Genito-Urinary: Negative Rain
Extremities: Edema and Erythema (Noted on bilateral hands)
Skin: Other (Left areolar area with erythema and tenderness. A ABEBA drain is in place with serosanguineous fluid.)
Neurological: Awake and Alert
Psychological: Calm
.
Lab / Diagnostic Study Results
12/13/24 08:08
12/11/24 13:25
Abs Immat Gran (auto) 0.0 10^3/uL (0-0.05) 12/13/24 08:08
Absolute Neuts (auto) 3.0 10^3/uL (1.4-6.5) 12/13/24 08:08
Absolute Lymphs (auto) 0.7 10^3/uL (1.2-3.4) L 12/13/24 08:08
Absolute Monos (auto) 0.5 10^3/uL (0.1-0.6) 12/13/24 08:08
Absolute Basos (auto) 0.1 10^3/uL (0-0.2) 12/13/24 08:08
Immature Gran % 0.4 % (0-0.5) 12/13/24 08:08
Neutrophils % 67.2 % (42.2-75.2) 12/13/24 08:08
Lymphocytes % 16.0 % (20.5-51.1) L 12/13/24 08:08
Monocytes % 10.2 % (1.7-9.3) H 12/13/24 08:08
Eosinophils % 5.1 % (0-6) 12/13/24 08:08
Basophils % 1.1 % (0-2) 12/13/24 08:08
Microbiology Results
Micro:
12/12/24 08:40 Wound Culture - Preliminary
Breast - Left No growth
Gram Stain - Preliminary
12/11/24 20:29 MRSA Screen - Final
Nose No Methicillin Resistant Staphylococcus aureus isolated.
12/11/2024 Left breast ultrasound: Scanning over the retroareolar left breast area of interest demonstrates a complex lobular fluid collection with internal debris and surrounding hyperemia, measuring approximately 3.6 x 1.8 x 4.6 cm, slightly
increased from prior and suggestive of abscess.
Assessment / Plan
Left breast abscess
Left breast SSTI
CAD; Hx NE
CHF
COPD
HTN
Dyslipidemia
Anxiety/depression
DVT/PE
Morbid obesity
Lymphedema
ILEANA
Recommendations:
Continue with empiric vancomycin for the present.
Monitor drain output.
Follow white count and temperature curve.
Follow Vanco levels closely to prevent nephrotoxicity.
Follow pending cultures to guide further antimicrobial selection and potential de-escalation.
Local care to the left breast wound.
[2024-12-13 15:30] VITALS: BP 141/76
[2024-12-13] MEDS: FEOSOL 325 MG PO (17:25)
[2024-12-13] MEDS: DEMADEX 20 MG PO (17:25)
[2024-12-13] MEDS: HEPARIN SC (19:33)
--- NOTE | 2024-12-13 19:46 | CON.GS ---
Consultation
-
Date/Time Consultation Requested: 12/12/24
Date/Time Consultation Performed: 12/13/24 0800
Requesting Provider: Montez
Performing Provider: Clarisa
Reason for Consultation: Recurrent left breast abscess
Medical History
-
Chief Complaint: breast infection, left
History of Present Illness:
The patient is a 49 Y/O female, first age 22, first period age 10, had uterine ablation for dysfunctional uterine bleeding, no family history of breast or ovarian ca who is a smoker and presents with a recurrent
left breast abscess requiring aspiration and drain placement by IR. The patient reports that she smokes very little and only takes 'one or two puffs' of each cigarette. She reports a history of prior 'clogged ducts' since the of her daughter
and that she had an excision previously on the right that showed 'inflammation'.
Past Medical History
Past Medical History: Reviewed & Noncontributory
Past Surgical History: Other (breast biopsy)
Social History
Tobacco: Smoker
Alcohol: Occasional
Drug: None
Family History
Family History: Reviewed & Not Pertinent
Allergies / Home Medications
Allergy/AdvReac Type Severity Reaction Status Date / Time
amoxicillin Allergy Rash on Verified 11/26/24 12:48
hands
naproxen Allergy heart Verified 11/26/24 12:48
palpitaitons
pollen extracts Allergy SOB;congest Verified 11/26/24 12:48
ion
�Medication �Instructions �Recorded �Confirmed �Type
ferrous sulfate 325 mg (65 mg 325 mg PO Q48H Supplement/anemia 02/10/15 12/11/24 History
iron) tablet (FeroSul)
albuterol sulfate 90 mcg/actuation 2 puff inhalation R Q4HPRN PRN 10/01/17 12/11/24 History
aerosol inhaler sob/wheezing
diltiazem HCl 180 mg 180 mg PO DAILY Heart 09/28/20 12/11/24 Rx
capsule,extended release 24 hr disease/condition #30 caps
pantoprazole 20 mg tablet,delayed 20 mg PO DAILY PRN gi issues 08/06/23 12/11/24 History
release
spironolactone 25 mg tablet 25 mg PO DAILY 08/07/23 12/11/24 History
melatonin 5 mg tablet 10 mg PO HS 08/30/23 12/11/24 History
acetaminophen 325 mg tablet 650 mg PO Q4H PRN MILD PAIN 10/08/23 12/11/24 History
(Tylenol)
bupropion HCl 150 mg tablet,12 hr 300 mg PO DAILY 10/08/23 12/11/24 History
sustained-release (Wellbutrin SR)
rosuvastatin 20 mg tablet (Crestor) 20 mg PO DAILY 10/08/23 12/11/24 History
cetirizine 10 mg tablet 10 mg PO DAILY #30 tabs 10/09/23 12/11/24 Rx
doxycycline hyclate 100 mg PO BID 12/11/24 12/11/24 History
guaifenesin 400 mg tablet 400 mg PO QID PRN congestion 12/11/24 12/11/24 History
ibuprofen 600 mg PO Q8H PRN knee pain 12/11/24 12/11/24 History
torsemide 20 mg PO Q48H 12/11/24 12/11/24 History
Review of Systems
-
History Source: Patient
All other systems: Negative unless noted
Skin: Other (left breast erythema)
A 10 point review of systems was completed, and was negative except as per HPI.
Physical Exam
Vital Signs
Temp Pulse Resp BP Pulse Ox
97.6 F 87 20 141/76 97
12/13/24 15:30 12/13/24 17:25 12/13/24 15:30 12/13/24 17:12/13/24 08:48
12/12/24 12/13/24 12/14/24
06:59 06:59 06:59
Actual Weight 121.364 kg 123.065 kg
Body Mass Index (BMI) 46.6
Lab Results
12/13/24 08:08
12/11/24 13:25
WBC 4.5 10^3/uL (4.8-10.8) L 12/13/24 08:08
Hgb 13.7 g/dL (12.0-16.0) 12/13/24 08:08
Hct 42.2 % (37.0-47.0) 12/13/24 08:08
Plt Count 192 10^3/uL (130-400) 12/13/24 08:08
Abs Immat Gran (auto) 0.0 10^3/uL (0-0.05) 12/13/24 08:08
Neutrophils % 67.2 % (42.2-75.2) 12/13/24 08:08
Physical Exam
General: Well Developed and Well Nourished
HEENT: Normocephalic and Anicteric
Respiratory: Clear
Cardiac: S1/S2 and Regular Rhythm
Breast: Other (left breast with periareolar erythema and induration, drainage catheter in place)
Musculoskeletal: No Clubbing and No Cyanosis
Skin: Warm and Dry
Neuro: Awake and Alert
Hematologic/Lymphatic: No Lymphadenopathy
Psych: Other (slightly anxious)
Data Reviewed
-
Radiology: Image Personally Visualized and interpreted and Discussed with Patient
Ultrasound: Image Personally Visualized and interpreted and Discussed with Patient
Labs: Labs Reviewed by me
Total Time Spent with Patient (in minutes): 20
Assessment / Plan
-
49 Y/O female smoker with chronic retroareolar abscess. Pt informed that this will recur unless she completely abstains from tobacco use. Continue treatment with drainage catheter irrigation and antibiotic therapy.
Please arrange for smoking cessation support upon discharge and pt should see me for drain removal.
[2024-12-13] MEDS: MELATONIN 10 MG PO (21:53)
[2024-12-13 22:20] LABS: Vancomycin Peak 25.6 ug/ml (18-26)
[2024-12-13 23:01] VITALS: BP 107/55
[2024-12-14] MEDS: VANCOCIN 275 MG IV (05:35)
[2024-12-14 05:53] LABS: Hematocrit 41.6 % (37.0-47.0); Hemoglobin 13.5 g/dL (12.0-16.0); Mean Corp Hgb Conc. 32.5 g/dL (33.0-37.0); Mean Corpuscular Hgb 30.3 pg (27.0-31.0); Mean Corpuscular Volume 93.3 fL (81.0-99.0); Mean Platelet Volume 11.4 fL (7.4-10.4); Platelet Count 211 10^3/uL (130-400); Red Blood Cell Count 4.46 10^6/uL (4.20-5.40); Red Cell Dist. Width 14.5 % (11.5-14.5); White Blood Cell Count 4.9 10^3/uL (4.8-10.8)
[2024-12-14 06:00] VITALS: BMI 46.4
[2024-12-14 06:08] LABS: Blood Urea Nitrogen 24 mg/dl (7-17); Calcium 9.1 mg/dl (8.4-10.2); Carbon Dioxide 27 mmol/L (22-30); Chloride 111 mmol/L (98-107); Estimated Creatinine Clearance 98 ml/min; Glucose 102 mg/dl (70-99); Potassium 4.6 mmol/L (3.5-5.1); Sodium 140 mmol/L (135-145); eGFR > 60.00
[2024-12-14 06:14] LABS: Vancomycin Trough 17.6 ug/ml (5-20)
[2024-12-14 07:53] VITALS: BP 129/78
[2024-12-14] MEDS: CARDIZEM CD 180 MG PO (08:06)
[2024-12-14] MEDS: CRESTOR 20 MG PO (08:06)
[2024-12-14] MEDS: WELLBUTRIN SR (12 hour sustained release) 300 MG PO (08:06)
[2024-12-14] MEDS: ALDACTONE 25 MG PO (08:06)
[2024-12-14] MEDS: ZYRTEC 10 MG PO (08:08)
[2024-12-14] MEDS: HEPARIN SC ×2 (08:08→08:10)
[2024-12-14] MEDS: ROBITUSSIN 200 MG PO (08:17)
[2024-12-14] MEDS: ROXICODONE 5 MG PO (08:17)
--- NOTE | 2024-12-14 08:32 | PHA.VAN.FU ---
Vancomycin Assessment / Plan
- Assessment
Renal Function: Stable
WBC's are: WNL
In the past 24 hrs, patient has been: Afebrile
- Assessment - Therapeutic Drug Monitoring
Extrapolated Cmax (mcg/mL): 29.6
Peak level was drawn: Appropriately (drawn ~3H after end of previous infusion)
Extrapolated Cmin (mcg/mL): 17.7
Trough Drawn: Appropriately
Levels were drawn: At steady state (levels drawn after 4th maintenance dose)
Calculated AUC (mcg*h/mL): 557
Calculated ke: 0.0488
Calculated half life (H): 14.2
Calculated Vd (L): 92 (~0.75 L/kg)
Calculated Vanc CL (ml/min): 75
- Dosing Plan
Adjust Regimen to: Vanc 1500mg Q24H
Dosing Comments: half-life > current dosing interval
Given prolonged half-life, additional accumulation is expected
Will preemptively adjust to Q24H dosing interval
Since patient likely not fully accumulated, difficult to estimate expected PK - will follow repeat levels in next few days
- Monitoring Plan
No level(s) ordered at this time: consider levels in next few days
- Follow Up
Pharmacy will continue to follow.
Vancomycin Follow UP
- -
Patient Age: 49
Patient Sex: Female
Vancomycin Day #: 4
Indication: Skin And Soft Tissue
Requesting Provider: Berta Loredo / Dr. Viveros
Pertinent Antimicrobial Allergies:
amoxicillin- rash on hands
Height / Weight:
Height 5 ft 4 in
Actual Weight 122.561 kg
Pertinent Past Medical History: BMI ~46
- Vital Signs / Lab Results
Temp Pulse Resp BP Pulse Ox
97.8 F 63 18 129/78 96
12/14/24 07:53 12/14/24 08:06 12/14/24 07:53 12/14/24 08:06 12/14/24 07:53
Lab Results - Hematology
12/11/24 12/12/24 12/13/24
06:16 08:08
WBC 6.9 5.6 4.5 L
12/14/24
05:32
WBC 4.9
Lab Results - Chemistry
12/11/24 12/14/24
05:32
BUN 19 H 24 H
Creatinine 0.8 0.9
Estimated Creat Clear 98
Albumin 4.3
Microbiology Results
12/12/24 08:40 Wound Culture - Preliminary
Breast - Left No growth
Gram Stain - Preliminary
12/11/24 20:29 MRSA Screen - Final
Nose No Methicillin Resistant Staphylococcus aureus isolated.
Therapeutic Drug Monitoring
Vancomycin Peak 25.6 ug/ml (18-26) 12/13/24 21:52
Vancomycin Trough 17.6 ug/ml (5-20) 12/14/24 05:33
--- NOTE | 2024-12-14 09:19 | W.PN.HOSP.TC ---
Today's Communication/Plan
-
Await ID, surgery input
Assessment / Plan
Assessment / Plan
Gen-AAOx3, NAD
HEENT-NC, AT, anicteric, clear oral mm
Neck-supple
CV-reg, no M, +S1/S2
Lungs-clear B/L
Abd-soft, NT, ND
Ext-no edema
Musculoskeletal-no cyanosis, clubbing
Skin-warm and dry
Neuro-grossly non-focal
Psych-calm, cooperative
Recurrent LEFT breast abscess/cellulitis
Recent drainage by IR on 11/26/2024�completed course of Bactrim DS
Chronic tinea intertrigo breasts,
- Status post ABEBA drain placement by [facility]
-Consult Dr. Chery for further management
MRSA screen negative. Gram stain of abscess fluid shows gram-positive cocci, gram-negative rods, gram-positive rods. Many WBCs. Culture pending. Previous abscess culture from November was insufficient for growth.
Fluid culture from abscess without growth. Currently on IV vancomycin per infectious disease. Drain output only 5 cc according to nursing.
Will discuss with surgical and ID services discharge plans.
Smoking cessation advised to help prevent recurrent breast abscess.
RIGHT breast/LEFT breast NIPPLE DISCHARGE x several years concern for possible malignancy given discharge and prior mass 2020 on followed
History of RIGHT breast cellulitis mastitis/mass intramammary lymph node 09/25/2020 not followed up on
History of Left lumpectomy 2013 benign, only mammogram 2013
- Patient denies history of recent mammogram
- Consult Breast surgery
Chronic diastolic CHF�stage III increased from stage I
I/O, daily weights
-Continue torsemide 20 mg daily
2D echo 12/06/2024: EF 55%, mild LVH, normal LVSF, flattened septum in systole and diastole consistent with RV pressure and volume overload, mild dilated left atrium, mild to moderate mitral stenosis, trace MR, mild TR, PASP 70 mmHg
Pulmonary hypertension-NEW on echo 12/06/2024
PASP 70 mmHg on echo 12/06/2024
Recommend follow-up with cardiology
CAD/OR
- Continue Crestor
Essential HTN
- Continue diltiazem 180 mg daily
HLD
Continue Crestor 20 mg every afternoon
PE 2013 unprovoked, PE 2014 unprovoked status post IVC filter
-Advised patient to have outpatient hematological workup as she never followed up
Tobacco dependence -1/2 pack a day x 36 years. Tobacco abuse contributing to recurrent breast abscess, discussed with patient that cessation is advised.
Question COPD
-Cessation advised
-Continue albuterol nebs
-Encourage patient to resume her Flovent discus she has not taken in she believes a few years
Alcohol use 2-3 drinks on Fridays and Saturdays vodka or whiskey
Recommend no more than 7 drinks per week
Anxiety/depression
-Continue Wellbutrin�patient states takes for smoking cessation
Iron deficiency anemia
-Continue ferrous sulfate 325 mg daily
Chronic fatty liver
GERD
-Continue Protonix 20 mg daily
Insomnia
- Continue melatonin 5 mg at bedtime
Class III obesity�BMI 46.3
Affects all aspects of care
Weight loss recommended
Other PMH:
Dysfunctional uterine bleeding status post D&C and uterine ablation December 2022
GI bleed secondary to polyp 2021
Chronic sinusitis
Chronic knee pain�takes occasional Motrin
Psoriasis-is following up outpatient
DVT prophylaxis
Subcu heparin
Full code
Dispo -discharge if cleared by ID, surgery. Outpatient follow-up.
Anticipated Discharge: Today
Subjective/Interval History
-
Date of Service: December 14, 2024
Patient seen and examined. No new complaints.
Objective Data
-
Labs:
Laboratory Results
12/14/24
05:32
WBC 4.9
Hgb 13.5
Hct 41.6
Plt Count 211
Sodium 140
Potassium 4.6
Chloride 111 H
Carbon Dioxide 27
BUN 24 H
Creatinine 0.9
Glucose 102 H
Calcium 9.1
Vital Signs:
Vital Signs
Temp Pulse Resp BP Pulse Ox
97.8 F 63 18 129/78 96
12/14/24 07:53 12/14/24 08:06 12/14/24 07:53 12/14/24 08:06 12/14/24 07:53
I&O
12/13/24 12/14/24 12/15/24
06:59 06:59 06:59
Intake Total 2500 / 2500 1245 / 1245
Balance 2500 / 2500 1245 / 1245
Review of Systems
-
History Source: Patient
All other systems: Reviewed and negative
[2024-12-14] MEDS: ZOFRAN 4 MG IV (10:48)
[2024-12-14] MEDS: MORPHINE SULFATE 1 MG IV (10:49)
--- NOTE | 2024-12-14 10:59 | PN.IRAD.UPD ---
Update Note - IRAD
- -
Left breast drain removed per . Site cleaned and dressed.
--- NOTE | 2024-12-14 11:30 | PTCARENOTE ---
1mg IV Morphine and 4mg IV Zofran given prior to L breast ABEBA drain removal by IR RN.
--- NOTE | 2024-12-14 13:26 | CM ---
Chart reviewed with follow with patient progress.
Plan; Home at discharge.
--- NOTE | 2024-12-14 14:06 | W.PN.ID1 ---
Date of Service
Date of Service: December 14, 2024
Today's Communication
Can transition Vancomycin to cephalexin 1000mg po q8 plus metronidazole 500mg po bid x 12 more days.
Assessment / Plan
Left breast abscess
Left breast SSTI
Recurrent mastitis from obstructed mammary glands
Amoxicillin allergy
CAD; Hx [place]
CHF
COPD
HTN
Dyslipidemia
Anxiety/depression
DVT/PE
Morbid obesity
Lymphedema
ILEANA
Recommendations:
s/p perc drain - removed
Abscess gram stain- polymicrobial, cx negtive
Can transition Vancomycin to cephalexin 1000mg po q8 plus metronidazole 500mg po bid x 12 more days.
Follow-up with breast surgeon.
Chief Complaint
-: Other (breast abscess)
Subjective / Review of Systems
Left breast drain removed. Feels better.
Vital Signs / Physical Exam
Vital Signs
Vital Signs
Temp Pulse Resp BP Pulse Ox
97.8 F 63 18 129/78 96
12/14/24 07:53 12/14/24 08:06 12/14/24 07:53 12/14/24 08:06 12/14/24 07:53
Physical Exam
Constitutional: No Acute Distress and Comfortable
Cardiovascular: Regular Rate and S1/S2
Pulmonary: Clear
Gastrointestinal: Soft, Non Tender and Non Distended
Extremities: Negative Edema
Neurological: AO x 3
Physical Exam:
Left breast + firm induration medial aspect of areola/breast with erythema
Objective Data
Lab Data
Lab Results
12/14/24 05:32
12/14/24 05:32
Estimated Creat Clear 98 ml/min 12/14/24 05:32
Total Bilirubin 0.9 mg/dl (0.2-1.3) 12/11/24 13:25
AST 25 U/L (14-36) 12/11/24 13:25
ALT 18 U/L (0-35) 12/11/24 13:25
Alkaline Phosphatase 160 U/L (38-126) H 12/11/24 13:25
Most recent labs reviewed.
Micro Results:
12/12/24 08:40 Wound Culture - Final
Breast - Left No growth
Gram Stain - Final
12/11/24 20:29 MRSA Screen - Final
Nose No Methicillin Resistant Staphylococcus aureus isolated.
12/11/2024 Left breast ultrasound: Scanning over the retroareolar left breast area of interest demonstrates a complex lobular fluid collection with internal debris and surrounding hyperemia, measuring approximately 3.6 x 1.8 x 4.6 cm, slightly
increased from prior and suggestive of abscess.
Care Review
Plan reviewed with: Physician (Dr. Montanez)
--- NOTE | 2024-12-14 14:20 | W.DS.TRANS ---
DC Summary - Medication Specialist
-
Discharge Instructions:
Discharge Diagnosis/Procedures Left breast abscess
Diet Regular
Activity As tolerated
Driving Restrictions As prior to admission
Bathing Restrictions None
Instructions:
Stand-Alone Forms:
Changes to Home Medications: No
Discharge Medications:
DC Medications w/original date entered in [facility]
ferrous sulfate 325 mg (65 mg iron) tablet (FeroSul) 325 mg PO Q48H Supplement/anemia 02/10/15
albuterol sulfate 90 mcg/actuation aerosol inhaler 2 puff inhalation R Q4HPRN PRN sob/wheezing 10/01/17
diltiazem HCl 180 mg capsule,extended release 24 hr 180 mg PO DAILY Heart disease/condition #30 caps 09/28/20
pantoprazole 20 mg tablet,delayed release 20 mg PO DAILY PRN gi issues 08/06/23
spironolactone 25 mg tablet 25 mg PO DAILY 08/07/23
melatonin 5 mg tablet 10 mg PO HS 08/30/23
acetaminophen 325 mg tablet (Tylenol) 650 mg PO Q4H PRN MILD PAIN 10/08/23
bupropion HCl 150 mg tablet,12 hr sustained-release (Wellbutrin SR) 300 mg PO DAILY 10/08/23
rosuvastatin 20 mg tablet (Crestor) 20 mg PO DAILY 10/08/23
cetirizine 10 mg tablet 10 mg PO DAILY #30 tabs 10/09/23
guaifenesin 400 mg tablet 400 mg PO QID PRN congestion 12/11/24
torsemide 20 mg PO Q48H 12/11/24
cephalexin 500 mg tablet 1,000 mg (2 x 500 mg) PO Q8H #72 tabs 12/14/24
ibuprofen 800 mg tablet 800 mg PO Q6HPRN PRN breast pain #20 tabs 12/14/24
metronidazole 500 mg tablet 500 mg PO BID #24 tabs 12/14/24
Home Medication Changes
Pending Results: No
[2024-12-14 15:32] VITALS: BP 160/80
[2024-12-14] MEDS: MOTRIN 800 MG PO (15:49)
== END 2024-12-14 17:23 | disposition home or self-care (01) | DRG 600 ==
LOC: 1 ACUTE 17:58
PROVIDERS: Clinical Nurse Specialist Family Health; Nurse Practitioner; Nurse Practitioner Gerontology; Radiology Vascular & Interventional Radiology; ADMITTING PHYSICIAN Hospitalist; ATTENDING PHYSICIAN Hospitalist; CONSULT PHYSICIAN Internal Medicine Infectious Disease; CONSULT PHYSICIAN Surgery; EMERGENCY PHYSICIAN Emergency Medicine; FAMILY PHYSICIAN Family Medicine
PROC: 0H9U30Z Drainage of Left Breast with Drainage Device, Percutaneous Approach (ICD-10-PCS; 2024-12-12)
DX: N61.1 Abscess of the breast and nipple (principal); I50.32 Chronic diastolic (congestive) heart failure; E66.813 Obesity, class 3; I27.20 Pulmonary hypertension, unspecified; I25.10 Atherosclerotic heart disease of native coronary artery without angina pectoris; E78.00 Pure hypercholesterolemia, unspecified; F32.A Depression, unspecified; F41.9 Anxiety disorder, unspecified; D50.9 Iron deficiency anemia, unspecified; K76.0 Fatty (change of) liver, not elsewhere classified; K21.9 Gastro-esophageal reflux disease without esophagitis; G47.00 Insomnia, unspecified; F17.210 Nicotine dependence, cigarettes, uncomplicated; Z79.899 Other long term (current) drug therapy; Z90.12 Acquired absence of left breast and nipple; I25.2 Old myocardial infarction
CPT/HCPCS: 10030; 76642; 80048; 80053; 80202; 85025; 85027; 87070; 87205; 96365; 96366; 96375; 99152; 99284; 99406; C1729; C1769

== ENCOUNTER 2024-12-21 10:57 | Emergency (ER) | payer OTHER, SELFPAY ==
[2024-12-21 11:25] VITALS: BP 146/87
[2024-12-21 11:57] LABS: % Basophils 1.1 % (0-2); % Eosinophils 3.6 % (0-6); % Immature Granulocytes 0.3 % (0-0.5); % Lymphocytes 15.1 % (20.5-51.1); % Monocytes 6.6 % (1.7-9.3); % Neutrophils 73.3 % (42.2-75.2); Absolute Basophils 0.1 10^3/uL (0-0.2); Absolute Eosinophils 0.2 10^3/uL (0-0.7); Absolute Monocytes 0.4 10^3/uL (0.1-0.6); Absolute Neutrophils 4.6 10^3/uL (1.4-6.5); Hematocrit 43.3 % (37.0-47.0); Hemoglobin 14.1 g/dL (12.0-16.0); Mean Corp Hgb Conc. 32.6 g/dL (33.0-37.0); Mean Corpuscular Hgb 30.1 pg (27.0-31.0); Mean Corpuscular Volume 92.5 fL (81.0-99.0); Mean Platelet Volume 10.9 fL (7.4-10.4); Nucleated Red Blood Cells % 0 %; Platelet Count 242 10^3/uL (130-400); Red Blood Cell Count 4.68 10^6/uL (4.20-5.40); Red Cell Dist. Width 14.7 % (11.5-14.5); White Blood Cell Count 6.3 10^3/uL (4.8-10.8)
[2024-12-21 12:11] LABS: ALT (SGPT) 20 U/L (0-35); AST (SGOT) 24 U/L (14-36); Albumin 4.2 g/dl (3.5-5.0); Alkaline Phosphatase 119 U/L (38-126); Blood Urea Nitrogen 10 mg/dl (7-17); Calcium 9.7 mg/dl (8.4-10.2); Carbon Dioxide 25 mmol/L (22-30); Chloride 109 mmol/L (98-107); Glucose 96 mg/dl (70-99); Potassium 4.6 mmol/L (3.5-5.1); Sodium 138 mmol/L (135-145); Total Bilirubin 0.8 mg/dl (0.2-1.3); Total Protein 7.7 g/dl (6.3-8.2); eGFR > 60.00
[2024-12-21 13:21] VITALS: BP 136/77
--- NOTE | 2024-12-21 13:34 | ED.GENMED ---
History of Present Illness
General
Chief Complaint: Skin Problem
Source: patient
Exam Limitations: none
Time Seen by Provider: 12/21/24 13:08
History of Present Illness
History of Present Illness:
49yoF with a history of coronary artery disease, CHF, pulmonary hypertension, hypertension, hyperlipidemia, prior PE s/p IVC filter presenting for evaluation of left forearm swelling and pain. Patient was recently hospitalized for a breast abscess.
She had an IV placed in her L forearm which was removed because it stopped working. She has noticed pain and hardness in the area where the IV was placed. Symptoms have been persistent for the past few days. No fevers or chills.
Past History
Past History
ED Past Medical History: CAD (OR), CHF (Diastolic heart failure), COPD, HTN, Hypercholesterolemia, OR, Psychiatric (Depression, anxiety, Claustrophobic, ), Other (Morbid obesity, DVT, PE, cardiomyopathy, anemia, lymphedema, menometrorrhagia, Sleep
apnea, CPAP, Colitis, GI bleeding, Uterine fibroid, Green fild filter, Bronchiolitis, LBBB) and Other (Recurrent PE and DVT, fatty liver, uterine artery embolization Chronic lower extremity edema, Hemorrhiods, Iron Def anema, Cellulitis, )
ED Past Surgical History: , Gynecological (Tubal ligation, endometrial embolization, Uterine fibroids, ), Orthopedic (Laminectomy), Tonsilectomy and Other (IVC filter, right lumpectomy, )
Patient has exhibited threatening behavior?: No
PSI?: No
Social History
Tobacco: Smoker
Alcohol: Occasional
Drug: None
Personal: Single
Living: alone (Significant other)
Employment: Not employed ([employer])
Family History
Family History: Cancer (Mother with lung cancer at 51, father with lung cancer at 71 both )
Phy Exam
General Physical Exam
General Presentation: well appearing and no apparent distress
General age: appears stated age
General Skin: warm and dry
General Habitus: normal
General Mental: alert
ENT Exam
ENT Exam: normocephalic
Pulmonary Exam
Pulmonary Exam: no respiratory distress
Neurological Exam
Neurological Exam: alert
S[place] Coma Scale
Eye Opening: Spontaneous
Verbal Response: Oriented
Motor Response: Obeys Commands
GCS Total Score: 15
Musculoskeletal Exam
Musculoskeletal Exam: other (Firmness palpated along a superficial vein in the L AC region. Mildly tender. No evidence of overlying cellulitis. )
Skin Exam
Skin Exam: normal color and warm/dry
Psychiatric Exam
Psychiatric Exam: normal mood/affect
Course
Orders/Labs/Results
Orders:
Orders
12/21/24 11:40
Complete Blood Count/With Diff Urgent
Comprehensive Metabolic Panel Urgent
12/21/24 13:34
Periph Venous Upr Ext Left US [US Periph Venous UPPER Ext LT] Urgent
Comment:
Reason For Exam: Swelling in L forearm, recent IV
Abnormal Lab Results
12/21/24
11:40
MCHC 32.6 L g/dL
(33.0-37.0)
RDW 14.7 H %
(11.5-14.5)
MPV 10.9 H fL
(7.4-10.4)
Absolute Lymphs (auto) 1.0 L 10^3/uL
(1.2-3.4)
Lymphocytes % 15.1 L %
(20.5-51.1)
Chloride 109 H mmol/L
(98-107)
12/21/24 11:40
12/21/24 11:40
Vital Signs
Initial and Last Documented VS:
Initial Vital Signs
Temp Pulse Resp BP Pulse Ox
98.3 F 82 18 146/87 97
12/21/24 11:25 12/21/24 11:25 12/21/24 11:25 12/21/24 11:25 12/21/24 11:25
Last Documented Vital Signs
Temp Pulse Resp BP Pulse Ox
98.0 F 72 18 136/77 98
12/21/24 13:21 12/21/24 13:21 12/21/24 13:21 12/21/24 13:21 12/21/24 13:21
MDM/Problems Addressed
Differential Diagnosis Includes:
49yoF here with pain in her L forearm where an IV was placed last week. VSS. There is firmness palpated along a superficial vein in the L AC on exam. Differential diagnosis includes: phlebitis, superficial thrombophlebitis, DVT, no signs of
overlying cellulitis
Labs sent in triage and white count is normal. Venous duplex obtained which shows superficial thrombophlebitis along the basilic vein. No evidence of DVT. No indication for anticoagulation. Supportive care discussed including warm compresses and
NSAIDs. Advised f/u with PCP and ED return precautions reviewed.
*Critical Care Note
Total Time (30-74mins, 75-104mins- exclusive of procedures): Not Applicable
ED Attending Note
-
Portions of this chart may have been created with voice recognition software.� Occasional wrong word or��sound alike� substitutions may have occurred due to the inherent limitations of voice recognition software.
Discharge Plan
Departure
Patient Disposition: Home (Routine Discharge)
Date of Disposition: 12/21/24
Time of Disposition: 14:50
Patient with high blood pressure during this ER visit?: Yes
Discharge Problem:
Superficial thrombophlebitis of basilic vein
Instructions: Superficial vein phlebitis and thrombosis
Prescriptions:
No Action
ferrous sulfate [FeroSul] 325 MG tablet
325 mg PO Q48H
albuterol sulfate 1 PUFF HFA aerosol inhaler
2 puff inhalation R Q4HPRN PRN (Reason: sob/wheezing)
diltiazem HCl 180 MG capsule,extended release 24hr
180 mg PO DAILY Qty: 30 0RF
Patient Comments:
10/08/23- NO PHARMACY RECORD OR ECW RECORD OF THIS DRUG
pantoprazole 20 mg tablet,delayed release (DR/EC)
20 mg PO DAILY PRN (Reason: gi issues)
spironolactone 25 mg Tablet
25 mg PO DAILY
Patient Comments:
10/08/23- NO PHARMACY RECORD OR ECW RECORD OF THIS DRUG
melatonin 5 mg Tablet
10 mg PO HS
bupropion HCl [Wellbutrin SR] 150 mg Tablet Sustained-Release 12 Hr
300 mg PO DAILY
acetaminophen [Tylenol] 325 mg Tablet
650 mg PO Q4H PRN (Reason: MILD PAIN)
rosuvastatin [Crestor] 20 mg Tablet
20 mg PO DAILY
cetirizine 10 mg Tablet
10 mg PO DAILY Qty: 30 0RF
torsemide
20 mg PO Q48H
Rx Instructions:
Patient is due to take torsemide 20 mg daily but takes every other day as she thinks she will be dehydrated
guaifenesin 400 mg Tablet
400 mg PO QID PRN (Reason: congestion)
ibuprofen 800 mg Tablet
800 mg PO Q6HPRN PRN (Reason: breast pain) Qty: 20 0RF
cephalexin 500 mg tablet
1,000 mg PO Q8H Qty: 72 0RF
metronidazole 500 mg tablet
500 mg PO BID Qty: 24 0RF
Referrals:
Maegan Sanchez DO [Family Provider] -
Activity Restrictions/Additional Instructions:
Apply warm compresses to affected area. Take ibuprofen as needed.
Please follow-up with your family doctor in 4-5 days. Return to the ER with any worsening symptoms including spreading redness or fevers.
Interventions
Interventions:
*Risk Screen - Suicide Last Done: 12/21/24 11:25
*General Assessment Last Done: 12/21/24 11:25
*Neglect/Abuse Screening Last Done: 12/21/24 11:25
*ED- Fall Risk Assessment Last Done: 12/21/24 15:37
*ED COVID-19 Vaccine History Last Done: 12/21/24 15:37
*Nursing Disposition Last Done: 12/21/24 15:37
ED-Skin Assessment Last Done: 12/21/24 15:37
Discharge Date and Time
Discharge Date/Time: 12/21/24 15:39
Print Language: YI
== END 2024-12-21 15:39 | disposition home or self-care (01) ==
LOC: EMR 10:57
PROVIDERS: Emergency Medicine; EMERGENCY PHYSICIAN Student in an Organized Health Care Education/Training Program; FAMILY PHYSICIAN Family Medicine
DX: I82.612 Acute embolism and thrombosis of superficial veins of left upper extremity (principal); I25.10 Atherosclerotic heart disease of native coronary artery without angina pectoris; I50.32 Chronic diastolic (congestive) heart failure; F17.200 Nicotine dependence, unspecified, uncomplicated; E78.00 Pure hypercholesterolemia, unspecified
CPT/HCPCS: 99285; 80053; 85025; 93971